=== PATIENT | male | born 1950 | race Caucasian/White ===

== ENCOUNTER 2021-03-28 18:06 | Inpatient (IN) | payer MEDICARE, MEDICAID, SELFPAY ==
[2021-03-28] VITALS (8 sets, daily range): BP systolic 106–138; BP diastolic 53–102; PULSE 30–97; RESP 17–27; TEMP 36.9–39.4; O2SAT 92–97; BMI 28.4
--- NOTE | 2021-03-28 18:55 | EKG12_ITS ---
Test Reason : UNRESPONSIVE Blood Pressure : / mmHG Vent. Rate : 089 BPM Atrial Rate : 089 BPM P-R Int : 186 ms QRS Dur : 156 ms QT Int : 406 ms P-R-T Axes : 050 -52 106 degrees QTc Int : 493 ms AV dual-paced rhythm Abnormal ECG Confirmed by MELISSA BRADLEY, JENNIFER ([id number]), development editor JEFF TONG ([id number]) on 03/31/2021 12:51:20 PM Referred By: BARON/FRANK Confirmed By:CLARITA TORRES MD
--- NOTE | 2021-03-28 19:01 | EX.ED.DYSGE1 ---
HPI History of Present Illness Chief Complaint: Mental Status Change Detail of Chief Complaint: Fever Informant: patient and EMS Onset/Context/Timing Onset: Today Context: Gradual Onset Timing: Continuous Current Severity: Moderate Maximum Severity: Moderate Narrative Narrative: 70-year-old male who [place] Per the squad patient looked ill and had a pulse ox of 69%. He has a fever of over 102. And was sent to the emergency department. Patient himself is unable give me any history. He is awake. He is answering questions. Is a very poor informant. There is no other family currently present. Prior similar symptoms: No Recent Illness/Hospitalization: No PFSH PFSH Medical History Anemia Cardiac pacemaker Chronic kidney disease Delusional disorder Dementia Drug induced acute dystonia Encephalopathy Essential (primary) hypertension Hallucinations Heart block Hyperlipemia Hypertensive chronic kidney disease with stage 1 through stage 4 chronic kidney disease, or unspecified chronic kidney disease Hypothyroidism IBS (irritable bowel syndrome) Muscle weakness Need for assistance with personal care Obstructive hypertrophic cardiomyopathy Other disorders of electrolyte and fluid balance, not elsewhere classified Parkinson disease Patient noncompliance, general Peripheral vascular disease Psychotic disorder with delusions due to known physiological condition Schizoaffective disorder TBI (traumatic brain injury) Unspecified psychosis not due to a substance or known physiological condition Vascular dementia Home Medications acetaminophen [Tylenol] 650 mg PO Q4H PRN 03/28/21 [History Last Taken 03/23/21] ascorbic acid (vitamin C) 1 g PO DAILY 03/28/21 [History Last Taken 03/28/21] aspirin 81 mg PO DAILY 03/28/21 [History Last Taken 03/28/21] cetirizine [Zyrtec] 10 mg PO DAILY 03/28/21 [History Last Taken 03/28/21] cholecalciferol (vitamin D3) 125 mcg PO DAILY 03/28/21 [History Last Taken 03/28/21] cholestyramine-aspartame [Cholestyramine Light] 1 ea PO MOWEFR 03/28/21 [History Last Taken 03/28/21] cimetidine 400 mg PO BID 03/28/21 [History Last Taken 03/28/21] divalproex 250 mg PO TID 03/28/21 [History Last Taken 03/28/21] divalproex 500 mg PO TID 03/28/21 [History Last Taken 03/28/21] levothyroxine 75 mcg PO DAILY 03/28/21 [History Last Taken 03/28/21] loperamide [Imodium A-D] 2 mg PO Q6H PRN 03/28/21 [History Last Taken 03/24/21] medroxyprogesterone 5 mg PO DAILY 03/28/21 [History Last Taken 03/28/21] medroxyprogesterone 10 mg PO DAILY 03/28/21 [History Last Taken 03/28/21] metoprolol succinate 50 mg PO DAILY 03/28/21 [History Last Taken 03/28/21] olanzapine 10 mg PO QHS 03/28/21 [History Last Taken 03/27/21] zinc sulfate 220 mg PO DAILY 03/28/21 [History Last Taken 03/28/21] Allergy/AdvReac Type Severity Reaction Status Date / Time benztropine Allergy PT UNABLE Verified 03/28/21 19:22 TO RESPOND-NEEDS F/U Penicillins Allergy PT UNABLE Verified 03/28/21 19:22 TO RESPOND-NEEDS F/U Social History Smoking Status: Never smoker ROS ROS ED ROS Narrative Unable to obtain per patient. Patient denies but history is not accurate. Review of Systems ROS Unobtainable: Denies due to encephalopathy Constitutional Constitutional ED: Reports fever(s) Eyes Eyes: Denies change in vision ENT ENT ED: Denies ear pain or sore throat Cardiovascular Cardiovascular: Denies chest pain Respiratory/Chest Respiratory/Chest: Denies cough or dyspnea Gastrointestinal Gastrointestinal: Denies abdominal pain, diarrhea, nausea or vomiting Genitourinary Genitourinary ED: Denies dysuria Musculoskeletal Musculoskeletal: Denies myalgias Integumentary Denies rash Neurologic Neurologic: Denies headache(s) Psychiatric Psychiatric: Denies depression Endocrine Endocrinology: Denies polyuria Allergic/Immunologic Allergic/Immunologic ED: Denies urticaria EXAM Physical Exam Narrative Exam Narrative: Older male vital signs stable he does have a fever of 102.9. He may be septic. He looks dehydrated. HEENT exam dry mucous memories. No trauma. Nontender scalp. No hematoma. C-spine nontender. Trachea midline. Lungs diminished breath sounds bilaterally. No rales or rhonchi. Heart regular rhythm rate about 90 no murmur. Chest nontender. Abdomen soft nontender. Pelvic girdle intact. Moving all 4 extremities. No deformity. No cellulitis. Back nontender. No rashes. No bruising. Neurologically is awake. His eyes are open. He is moving all 4 extremities. He is answering questions but his history is inaccurate. Const Vital Signs: 03/28/21 18:08 03/28/21 18:13 03/28/21 18:55 Temperature 102.9 F H 102.3 F H 99.5 F H Temperature Source Oral Oral Oral Pulse Rate 89 88 88 Respiratory Rate 27 H 19 H 19 H Blood Pressure 123/69 H 123/69 H 138/102 H Blood Pressure Mean 87 87 114 Pulse Ox 94 95 96 Oxygen Delivery Method Room Air Room Air Room Air 03/28/21 19:44 03/28/21 21:00 03/28/21 22:22 Temperature 99.4 F H 98.4 F 98.5 F Temperature Source Oral Oral Axillary Pulse Rate 79 70 97 Respiratory Rate 18 24 H 17 Blood Pressure 125/53 H 106/68 107/63 Blood Pressure Mean 77 80 77 Pulse Ox 96 92 60 Oxygen Delivery Method Room Air Room Air Room Air 03/28/21 22:23 Temperature 98.5 F Temperature Source Axillary Pulse Rate Respiratory Rate Blood Pressure Blood Pressure Mean Pulse Ox Oxygen Delivery Method Positive well nourished and well developed; Negative for obese, cachectic, contractures or unkempt General Appearance ED: well developed and NAD; Negative for unkempt, cachectic, contractures, cyanotic or diaphoretic Nutritional Appearance: Negative for cachectic or obese HEENT Reports dry mucous membranes Negative for trauma or tenderness Mouth ED: Yes dry mucous membranes Mouth: dry mucous membranes Eyes PERRL and EOMs intact bilaterally Neck no lymphadenopathy, supple and no JVD General: Negative for tenderness Chest Wall inspection of chest normal and palpation of chest normal Resp normal respiratory effort and clear to auscultation bilaterally Auscultation: diminished lung sounds; Negative for rales, rhonchi or wheezes Cardio regular rate, regular rhythm, S1 normal heart sound, S2 normal heart sound and no murmurs GI normal to inspection, nondistended, normoactive bowel sounds, non-tender, non-distended and no masses Inspection: Negative for abdominal distention Auscultation: normoactive bowel sounds; Negative for hyperactive bowel sounds or hypoactive bowel sounds Palpation: soft; Negative for tender, guarding or rebound tenderness present Back/Spine no CVA tenderness General Back: Negative for CVA tenderness Cervical Spine: Negative for cervical spine tenderness Thoracic Spine / Upper Back: Negative for thoracic spinal tenderness or paraspinal muscle tenderness Lumbar Spine / Lower Back: Negative for lumbar spinal tenderness Extremity normal to inspection General Extremety ED: Negative for edema or tenderness General Extremity: Negative for edema Neuro No oriented x3 Sensorium / Orientation: alert, orientation impaired and lethargic; Negative for stuporous Motor Exam: strength 5/5 throughout and general weakness Psych mental status grossly normal Appearance: Negative for unkempt Skin no rashes or lesions noted and no wounds MDM MDM MDM Narrative Medical decision making narrative: 70-year-old male with a fever and decreased mental status and was found at the longterm. He will undergo a septic work-up initiated. Treated with IV fluids and Tylenol for fever. Repeat exam at 10:40 p.m. patient is resting comfortably. I have already spoken to the hospitalist. His physician shampoo assistant is down evaluating the patient for the ICU. Patient be admitted for Covid and sepsis. Lab Data Attestation: I reviewed the patient's lab results. Lab results narrative: CBC White count 6.7. Hemoglobin 13. PT PTT INR unremarkable. Electrolytes show potassium of 5.3 gap is 7 BUN and creatinine 27 2.47. Liver enzymes unremarkable. Lactic acid elevated 3.7. UA 150 occult blood negative nitrates. No white cells and no bacteria. Covid positive. Labs: Laboratory Results - last 24 hr 03/28/21 03/28/21 03/28/21 18:29 18:29 18:29 WBC 6.7 RBC 4.03 L Hgb 13.0 Hct 38.8 L MCV 96.3 H MCH 32.3 H MCHC 33.5 RDW Std Deviation 47.4 H RDW Coeff of Garret 13.2 Plt Count 97 L MPV 11.0 Immature Gran % (Auto) CERTIFIED PROSTHETIST VICE PRESIDENT Neut % (Auto) CERTIFIED PROSTHETIST VICE PRESIDENT Lymph % (Auto) CERTIFIED PROSTHETIST VICE PRESIDENT [place] % (Auto) CERTIFIED PROSTHETIST VICE PRESIDENT Eos % (Auto) CERTIFIED PROSTHETIST VICE PRESIDENT Baso % (Auto) CERTIFIED PROSTHETIST VICE PRESIDENT Absolute Neuts (auto) 5.2 Absolute Lymphs (auto) 0.74 L Total Counted 100 Neutrophils % (Manual) 69 Band Neutrophils % 9 H Lymphocytes % (Manual) 11 L Monocytes % (Manual) 11 H Nucleated RBC % CERTIFIED PROSTHETIST VICE PRESIDENT Diff Path Review May foll Platelet Estimate SLT DEC RBC Morphology N CHROM Anisocytosis 1+ PT 14.4 INR 1.2 APTT 34.0 Sodium 135 L Potassium 5.3 H Chloride 106 Carbon Dioxide 22.0 Anion Gap 7 BUN 27 H Creatinine 2.47 H Estim Creat Clear Calc 30.54 Est GFR (MDRD) Af Amer 33 L Est GFR (MDRD) Non-Af 28 L BUN/Creatinine Ratio 10.9 Glucose 215 H Lactic Acid Calcium 8.5 Total Bilirubin 0.60 AST 44 H ALT 39 Alkaline Phosphatase 47 Total Protein 6.5 Albumin 2.5 L Globulin 4.0 Albumin/Globulin Ratio 0.6 L Urine Color Urine Clarity Urine pH Ur Specific [place] Urine Protein Urine Glucose (UA) Urine Ketones Urine Occult Blood Urine Nitrite Urine Bilirubin Urine Urobilinogen Ur Leukocyte Esterase Urine RBC Urine WBC Ur Squamous Epith Cells Amorphous Sediment Urine Bacteria Urine Mucus 03/28/21 03/28/21 18:29 19:30 WBC RBC Hgb Hct MCV MCH MCHC RDW Std Deviation RDW Coeff of Garret Plt Count MPV Immature Gran % (Auto) Neut % (Auto) Lymph % (Auto) [place] % (Auto) Eos % (Auto) Baso % (Auto) Absolute Neuts (auto) Absolute Lymphs (auto) Total Counted Neutrophils % (Manual) Band Neutrophils % Lymphocytes % (Manual) Monocytes % (Manual) Nucleated RBC % Diff Path Review Platelet Estimate RBC Morphology Anisocytosis PT INR APTT Sodium Potassium Chloride Carbon Dioxide Anion Gap BUN Creatinine Estim Creat Clear Calc Est GFR (MDRD) Af Amer Est GFR (MDRD) Non-Af BUN/Creatinine Ratio Glucose Lactic Acid 3.7 H* Calcium Total Bilirubin AST ALT Alkaline Phosphatase Total Protein Albumin Globulin Albumin/Globulin Ratio Urine Color Yellow Urine Clarity Sl Cldy Urine pH 6.0 Ur Specific [place] 1.015 Urine Protein 30 H Urine Glucose (UA) 100 H Urine Ketones 5 H Urine Occult Blood 150 H Urine Nitrite Negative Urine Bilirubin Negative Urine Urobilinogen 4 H Ur Leukocyte Esterase Negative Urine RBC 10-25 SEEN Urine WBC 0 SEEN Ur Squamous Epith Cells 0-5 SEEN Amorphous Sediment 1+ URATE Urine Bacteria 0 SEEN Urine Mucus 0 SEEN Radiography Chest X-Ray - ED: 1 View, Read by ED Physician and Left Infiltrate Diagnostic Testing: Radiology Impression Chest X-Ray 03/28/21 19:40 IMPRESSION: Small patchy interstitial opacities are seen in the costophrenic angle of the left lower lobe Electronically Signed: Pavan Parham MD at 21:06 EDT , Service support , Chest x-ray portable one view with left lower lobe infiltrate. Rhythm Strip Rhythm Strip: Paced Rate: 89 EKG Initial EKG: Attestation: I personally reviewed and interpreted this EKG as follows: Interpretation: No Acute Injury Pattern and Paced Comments: Paced rhythm rate of 89. Interventricular conduction delay. Critical Care Time Critical Care Time: Yes Critical care time (excluding procedures): 30-74 minutes, Including time spent:, Discussing w/Patient &/or Family/Sleeve Fixer, Discussing w/Consultants, Arranging Admission or Transfer, Performing Direct Patient Care at Bedside and - (31 minutes) Discharge Plan Dx/Rx/DC Orders Clinical Impression: Fever, COVID-19, Altered mental status, Sepsis Disposition Disposition: Acute Care Hospital [facility]
[2021-03-28] MEDS: 0.9% Normal Saline 1,000 ML 999 ML IV (19:21)
--- NOTE | 2021-03-28 19:40 | RAD_ITS ---
STUDY: X-RAY CHEST REASON FOR EXAM: Male, 70 years old. fever TECHNIQUE: Single AP portable view of the chest. COMPARISON: None. FINDINGS: Right chest cardiac device and leads noted. Small patchy interstitial opacities are seen in the costophrenic angle of the left lower lobe. The interstitium is coarsened within the right upper lobe appears to be chronic. There is no demonstrated pleural abnormality. Sternal cerclage wires and vascular clips are present from a prior sternotomy and coronary artery bypass graft procedure (CABG). Normal mediastinum and tika. Normal visualized pulmonary arteries. There is atherosclerotic calcification of the aortic arch with tortuosity. There are diffuse degenerative changes of the visualized thoracic spine. Normal visualized ribs, clavicles, and shoulders. There is no demonstrated abnormality of the visualized soft tissue structures of the upper abdomen. RAD/Chest 1 View (Portable) IMPRESSION: Small patchy interstitial opacities are seen in the costophrenic angle of the left lower lobe Electronically Signed: Pavan Parham MD at 21:06 EDT , Service support ,
[2021-03-28] MEDS: Acetaminophen 500 MG Tablet 1000 MG PO (19:43)
[2021-03-28 19:50] LABS: Bacteria 0 SEEN /hpf (None Seen); Mucous, Urine 0 SEEN /hpf (<or=2+); White Blood Cells 0 SEEN /hpf (0-5)
[2021-03-28 19:54] LABS: Color, Urine Yellow (Yellow); Glucose, Dipstick 100 mg/dl (Normal); Ketone-Dipstick 5 mg/dl (Negative); Leukocyte Esterase-Dipstick Negative /ul (Negative); Nitrite-Dipstick Negative (Negative); Occult Blood-Urine 150 /ul (Negative); Protein-Dipstick 30 mg/dl (Negative); Specific Gravity, Urine 1.015 (1.002-1.030); Urine Bilirubin Dipstick Negative (Negative); Urine Urobilinogen 4 mg/dl (Normal)
[2021-03-28 19:56] LABS: Hematocrit 38.8 % (40-54); Mean Corp Hgb Conc 33.5 g/dL (32-36); Mean Corpuscular Hgb 32.3 pg (27.0-32.0); Mean Corpuscular Volume 96.3 fL (80-94); POSITIVE COUNT YES; POSITIVE MORPHOLOGY YES; Platelet Count 97 K/mm3 (150-450); RBC Distribution Width CV 13.2 % (11.6-14.6); RBC Distribution Width SD 47.4 fl (35.1-43.9); Red Blood Count 4.03 M/mm3 (4.6-6.2); White Blood Count 6.7 K/mm3 (4.4-11.0)
[2021-03-28 19:58] LABS: International Normalized Ratio 1.2; Prothrombin Time (Protime)PT. 14.4 SECONDS (11.7-14.9)
[2021-03-28 20:08] LABS: ALB/GLOB Ratio 0.6 RATIO (0.9-2.4); AST(SGOT) 44 U/L (15-37); Alanine Aminotransfer ALT/SGPT 39 U/L (16-61); Albumin, Serum 2.5 g/dL (3.2-5.0); Alkaline Phosphatase 47 U/L (45-117); Anion Gap 7 (5-15); BUN 27 mg/dL (7-18); BUN/Creat Ratio 10.9 RATIO (10-20); Calcium,Total 8.5 mg/dL (8.5-10.1); Chloride 106 mmol/L (98-107); Creatinine, Serum 2.47 mg/dL (0.70-1.30); EST Glomerular Filtration Rate 28 mL/min (>60); Est Glom Filt Rate - Afr Amer 33 mL/min (>60); Estimated Creatinine Clearance 30.54 ml/min; Glucose 215 mg/dL (74-106); Potassium 5.3 mmol/L (3.5-5.1); Protein, Total 6.5 g/dL (6.4-8.2); Sodium Level 135 mmol/L (136-145)
[2021-03-28 20:28] LABS: Lymphocyte 11 % (19-41); Monocyte 11 % (0-10); Neutrophil-Band 9 % (0-5); Neutrophil-Segmented 69 % (47-70); Total Cells Counted 100 (MANUAL DIFF)
[2021-03-28 20:30] LABS: Anisocytosis 1+; Red Cell Morphology N CHROM NORMAL (NORM C&C)
[2021-03-28 20:31] LABS: Platelet Estimate SLT DEC (ADEQ)
[2021-03-28 20:32] LABS: Differential Indicated MANUAL DIFF
--- NOTE | 2021-03-28 20:32 | ED.RN ---
lactic 3.7 reported to . verbalizes understanding
[2021-03-28 20:33] LABS: Absolute Lymphocyte Count 0.74 X10^3/uL (0.83-4.51); Absolute Neutrophil Count 5.2 X10^3/uL (2.0-7.7); Lactic Acid 3.7 mmol/L (0.4-1.9); Scan Smear per Review Criteria MANUAL DIFF
[2021-03-28 20:39] LABS: Red Blood Cells-Urine 10-25 SEEN /hpf (0-5); Squamous Epithelial Cells - UA 0-5 SEEN /hpf (0-5)
[2021-03-28 20:40] LABS: Urine Clarity Sl Cldy (Clear)
[2021-03-28 20:41] LABS: Amorphous Sediment 1+ URATE
--- NOTE | 2021-03-28 23:22 | HP.PCM_ITS ---
HPI - General General Date of Service: 03/28/21 Chief Complaint: Altered mental status HPI Narrative PASCUAL HUNTLEY, is a 70 M who presents from an [facility] where staff was concerned about patient's mental status. Per staff patient has not been acting right has been very lethargic and not behaving per his norm. Per residential report patient tested positive for Covid approximately 4 to 5 days ago. Patient is unable to answer questions at this time due to lethargy and confusion.Patient does have a legal guardian, patient full code. [facility] Medical History Anemia Cardiac pacemaker Chronic kidney disease Delusional disorder Dementia Drug induced acute dystonia Encephalopathy Essential (primary) hypertension Hallucinations Heart block Hyperlipemia Hypertensive chronic kidney disease with stage 1 through stage 4 chronic kidney disease, or unspecified chronic kidney disease Hypothyroidism IBS (irritable bowel syndrome) Muscle weakness Need for assistance with personal care Obstructive hypertrophic cardiomyopathy Other disorders of electrolyte and fluid balance, not elsewhere classified Parkinson disease Patient noncompliance, general Peripheral vascular disease Psychotic disorder with delusions due to known physiological condition Schizoaffective disorder TBI (traumatic brain injury) Unspecified psychosis not due to a substance or known physiological condition Vascular dementia Home Medications acetaminophen [Tylenol] 650 mg PO Q4H PRN 03/28/21 [History Last Taken 03/23/21] ascorbic acid (vitamin C) 1 g PO DAILY 03/28/21 [History Last Taken 03/28/21] aspirin 81 mg PO DAILY 03/28/21 [History Last Taken 03/28/21] cetirizine [Zyrtec] 10 mg PO DAILY 03/28/21 [History Last Taken 03/28/21] cholecalciferol (vitamin D3) 125 mcg PO DAILY 03/28/21 [History Last Taken 03/28/21] cholestyramine-aspartame [Cholestyramine Light] 1 ea PO MOWEFR 03/28/21 [History Last Taken 03/28/21] cimetidine 400 mg PO BID 03/28/21 [History Last Taken 03/28/21] divalproex 250 mg PO TID 03/28/21 [History Last Taken 03/28/21] divalproex 500 mg PO TID 03/28/21 [History Last Taken 03/28/21] levothyroxine 75 mcg PO DAILY 03/28/21 [History Last Taken 03/28/21] loperamide [Imodium A-D] 2 mg PO Q6H PRN 03/28/21 [History Last Taken 03/24/21] medroxyprogesterone 5 mg PO DAILY 03/28/21 [History Last Taken 03/28/21] medroxyprogesterone 10 mg PO DAILY 03/28/21 [History Last Taken 03/28/21] metoprolol succinate 50 mg PO DAILY 03/28/21 [History Last Taken 03/28/21] olanzapine 10 mg PO QHS 03/28/21 [History Last Taken 03/27/21] zinc sulfate 220 mg PO DAILY 03/28/21 [History Last Taken 03/28/21] Allergy/AdvReac Type Severity Reaction Status Date / Time benztropine Allergy PT UNABLE Verified 03/28/21 19:22 TO RESPOND-NEEDS F/U Penicillins Allergy PT UNABLE Verified 03/28/21 19:22 TO RESPOND-NEEDS F/U unable to obtain unable to obtain Social History Smoking Status: Never smoker ROS Review of Systems ROS Unobtainable: due to mental status Vital Signs Vital Signs Vital Signs: 03/28/21 18:08 03/28/21 18:13 03/28/21 18:55 Temperature 102.9 F H 102.3 F H 99.5 F H Temperature Source Oral Oral Oral Pulse Rate 89 88 88 Respiratory Rate 27 H 19 H 19 H Blood Pressure 123/69 H 123/69 H 138/102 H Blood Pressure Mean 87 87 114 Pulse Ox 94 95 96 Oxygen Delivery Method Room Air Room Air Room Air 03/28/21 19:44 03/28/21 21:00 03/28/21 22:22 Temperature 99.4 F H 98.4 F 98.5 F Temperature Source Oral Oral Axillary Pulse Rate 79 70 97 Respiratory Rate 18 24 H 17 Blood Pressure 125/53 H 106/68 107/63 Blood Pressure Mean 77 80 77 Pulse Ox 96 92 60 Oxygen Delivery Method Room Air Room Air Room Air 03/28/21 22:23 03/28/21 22:57 Temperature 98.5 F 98.5 F Temperature Source Axillary Axillary Pulse Rate 97 Respiratory Rate 17 Blood Pressure 107/63 Blood Pressure Mean 77 Pulse Ox 97 Oxygen Delivery Method Room Air Weight Weight: 209 lb 7.026 oz Body Mass Index (BMI) 28.4 Physical Exam Const Orientation / Consciousness: lethargic Exam Limitations: altered mental status HEENT normocephalic and head/scalp atraumatic Eyes conjunctivae normal and no scleral icterus Neck supple and no JVD General: trachea midline Resp normal respiratory effort and normal air movement Auscultation: wheezes upper bilaterally, anterior and posterior Cardio regular rate, regular rhythm, S1 normal heart sound, S2 normal heart sound and peripheral pulses 2+ throughout GI normal to inspection, nondistended, normoactive bowel sounds, soft to palpation and non-tender Extremity normal capillary refill and no clubbing, cyanosis or edema General Extremity: no tenderness to palpation of joints or extremities Skin General Skin Exam: no breakdown and turgor normal Lesions: no lesions Rashes: no rashes Neuro Sensorium / Orientation: confused and lethargic Psych Speech: incoherent Thought Process: confused Results Lab / Micro Data Result Diagrams: 03/28/21 18:29 03/28/21 18:29 Labs: Laboratory Results - last 24 hr 03/28/21 18:29: WBC 6.7, RBC 4.03 L, Hgb 13.0, Hct 38.8 L, MCV 96.3 H, MCH 32.3 H, MCHC 33.5, RDW Std Deviation 47.4 H, RDW Coeff of Garret 13.2, Plt Count 97 L, MPV 11.0, Immature Gran % (Auto) CIGARETTE PACKING MACHINE OPERATOR, Neut % (Auto) CIGARETTE PACKING MACHINE OPERATOR, Lymph % (Auto) CIGARETTE PACKING MACHINE OPERATOR, [place] % (Auto) CIGARETTE PACKING MACHINE OPERATOR, Eos % (Auto) CIGARETTE PACKING MACHINE OPERATOR, Baso % (Auto) CIGARETTE PACKING MACHINE OPERATOR, Absolute Neuts (auto) 5.2, Absolute Lymphs (auto) 0.74 L, Total Counted 100, Neutrophils % (Manual) 69, Band Neutrophils % 9 H, Lymphocytes % (Manual) 11 L, Monocytes % (Manual) 11 H, Nucleated RBC % CIGARETTE PACKING MACHINE OPERATOR, Diff Path Review November jez, Platelet Estimate SLT DEC, RBC Morphology N CHROM, Anisocytosis 1+ 03/28/21 18:29: PT 14.4, INR 1.2, APTT 34.0 03/28/21 18:29: Sodium 135 L, Potassium 5.3 H, Chloride 106, Carbon Dioxide 22.0, Anion Gap 7, BUN 27 H, Creatinine 2.47 H, Estim Creat Clear Calc 30.54, Est GFR (MDRD) Af Amer 33 L, Est GFR (MDRD) Non-Af 28 L, BUN/Creatinine Ratio 10.9, Glucose 215 H, Calcium 8.5, Total Bilirubin 0.60, AST 44 H, ALT 39, A lkaline Phosphatase 47, Total Protein 6.5, Albumin 2.5 L, Globulin 4.0, Albumin/Globulin Ratio 0.6 L 03/28/21 18:29: Lactic Acid 3.7 H* 03/28/21 19:30: Urine Color Yellow, Urine Clarity Sl Cldy, Urine pH 6.0, Ur Specific [place] 1.015, Urine Protein 30 H, Urine Glucose (UA) 100 H, Urine Ketones 5 H, Urine Occult Blood 150 H, Urine Nitrite Negative, Urine Bilirubin Negative, Urine Urobilinogen 4 H, Ur Leukocyte Esterase Negative, Urine RBC 10- 25 SEEN, Urine WBC 0 SEEN, Ur Squamous Epith Cells 0-5 SEEN, Amorphous Sediment 1+ URATE, Urine Bacteria 0 SEEN, Urine Mucus 0 SEEN Micro: Microbiology 03/28/21 19:30 Nasal Secretion SARS-CoV-2 Antigen (Rapid) - Final SARS-CoV-2 (COVID 19) Rhythm Strip Rhythm Strip: Paced Rate: 89 Radiology Impression Chest X-Ray 03/28/21 19:40 IMPRESSION: Small patchy interstitial opacities are seen in the costophrenic angle of the left lower lobe Electronically Signed: Pavan Parham MD at 21:06 EDT , Service support , Assessment & Plan Assessment/Plan (1) COVID-19: (2) Sepsis: QUALIFIERS: Sepsis type: sepsis due to unspecified organism Sepsis acute organ dysfunction status: with acute organ dysfunction Severe sepsis acute organ dysfunction type: acute renal failure Acute renal failure type: unspecified Severe sepsis shock status: without septic shock Qualified Code(s): A41.9 - Sepsis, unspecified organism; R65.20 - Severe sepsis without septic shock; N17.9 - Acute kidney failure, unspecified PLAN: 1. Sepsis secondary to COVID-19 -Admit to ICU for continuous cardiac monitoring -N.p.o. due to lethargy and decreased alertness -Blood sugars every 6 hours to monitor for hypoglycemia -Consult biopsychologist -Consult infectious disease -Consult case management for discharge planning as patient arrived from [facility] facility -Covid precautions ordered -CPK, CRP, D-dimer, LDH, procalcitonin, mag, Phos ordered -CBC and CMP daily -Vital signs per protocol -PT and OT to eval and treat -Therapeutic Lovenox 2. Acute kidney injury -Normal saline 150 ml/hr -Labs reviewed on clinisync, BMP from 2019 shows creatinine 1.4, 2.47 -CMP daily, trend 3. Hypertension -Continue metoprolol -Vital signs per protocol, currently stable. Monitor for hypotension secondary to sepsis 4. Schizoaffective disorder -Continue olanzapine -Patient also has sexual aggression, will continue medroxyprogesterone 5. Hypothyroidism -Continue levothyroxine 6. Chronic unspecified encephalopathy -Complicates evaluation of altered mental status DVT prophylaxis-SCDs, therapeutic Lovenox ordered This patient was seen by JYOTI Drake under the supervision of Dr. Bhatt.
[2021-03-28 23:51] LABS: Reflex Lactate? Y
[2021-03-29] VITALS (24 sets, daily range): BP systolic 111–157; BP diastolic 57–92; PULSE 60–86; RESP 12–26; TEMP 36.4–36.8; O2SAT 90–100; BMI 29.7
[2021-03-29] MEDS: dexAMETHasone 10 MG/ML Vial IV (00:10)
--- NOTE | 2021-03-29 01:00 | NURSING ---
Upon arrival to ICU patient requests a peanut butter sandwich and asks what time breakfast is served. States he has had diarrhea so he will need cleaned up. Patient is alert but disoriented. Will continue to monitor.
[2021-03-29] MEDS: 0.9% Normal Saline 1,000 ML 50 ML IV (01:34)
[2021-03-29 01:41] LABS: Hematocrit 36.1 % (40-54); Mean Corp Hgb Conc 33.2 g/dL (32-36); Mean Corpuscular Hgb 32.3 pg (27.0-32.0); Mean Platelet Vol. 10.6 fl (6.2-12.0); POSITIVE COUNT YES; POSITIVE MORPHOLOGY YES; Platelet Count 83 K/mm3 (150-450); RBC Distribution Width CV 13.2 % (11.6-14.6); RBC Distribution Width SD 47.8 fl (35.1-43.9); Red Blood Count 3.72 M/mm3 (4.6-6.2); White Blood Count 5.9 K/mm3 (4.4-11.0)
[2021-03-29 01:45] LABS: Differential Indicated MANUAL DIFF
[2021-03-29 01:58] LABS: Lactic Acid 1.7 mmol/L (0.4-1.9)
[2021-03-29 02:18] LABS: Procalcitonin 4.52 ng/mL (0.00-0.09)
[2021-03-29 02:27] LABS: ALB/GLOB Ratio 0.8 RATIO (0.9-2.4); AST(SGOT) 71 U/L (15-37); Alanine Aminotransfer ALT/SGPT 40 U/L (16-61); Albumin, Serum 2.4 g/dL (3.2-5.0); Alkaline Phosphatase 42 U/L (45-117); Anion Gap 7 (5-15); BUN 29 mg/dL (7-18); BUN/Creat Ratio 13.6 RATIO (10-20); Chloride 110 mmol/L (98-107); Creatinine, Serum 2.13 mg/dL (0.70-1.30); EST Glomerular Filtration Rate 33 mL/min (>60); Est Glom Filt Rate - Afr Amer 40 mL/min (>60); Estimated Creatinine Clearance 33.32 ml/min; Globulin 3.1 g/dL (2.2-4.2); Glucose 151 mg/dL (74-106); Magnesium 2.2 mg/dL (1.6-2.6); Phosphorus 3.7 mg/dL (2.5-4.9); Potassium 4.8 mmol/L (3.5-5.1); Protein, Total 5.5 g/dL (6.4-8.2); Sodium Level 139 mmol/L (136-145)
[2021-03-29 02:32] LABS: D-Dimer Quantitative (DVT/PE) 3.95 FEU/ug/m (0.27-0.49)
[2021-03-29 02:42] LABS: CPK Total, Creatine Kinase 1815 U/L (39-308); LDH 401 U/L (87-241)
[2021-03-29 03:11] LABS: Metamyelocyte 1 % (0-1); Neutrophil-Band 4 % (0-5); Neutrophil-Segmented 74 % (47-70); Total Cells Counted 100 (MANUAL DIFF)
[2021-03-29 03:12] LABS: Lymphocyte 14 % (19-41); Monocyte 7 % (0-10)
[2021-03-29 03:13] LABS: Platelet Estimate SLT DEC (ADEQ); Red Cell Morphology NORM C+C NORMAL (NORM C&C)
[2021-03-29 03:14] LABS: Absolute Neutrophil Count 4.6 X10^3/uL (2.0-7.7); Neutrophil # 4.61 X10^3/uL (2.7-7.7)
[2021-03-29 03:15] LABS: Absolute Lymphocyte Count 0.83 X10^3/uL (0.83-4.51); Lymphocyte # 0.83 X10^3/ul (0.83-4.51)
--- NOTE | 2021-03-29 05:54 | CT_ITS ---
STUDY: CTA CHEST REASON FOR EXAM: Male, 70 years old. ELEVATED D-DIMER RADIATION DOSAGE (If Supplied By Facility): CTDIvol = ( 14.78 ) mGy, DLP = ( 504.98 ) mGycm TECHNIQUE: The examination was performed with the intravenous administration of IV 100mL Isovue-370. Post-processing of the angiographic images was performed, with multiplanar reformation and 3D reconstruction. Individualized dose optimization techniques were used for this CT. COMPARISON: None. FINDINGS: Evaluation is limited by patient motion and by streak artifact due to the patient''s arms being at his sides. There are peripheral groundglass opacities in both lungs, most pronounced in the right upper lobe. There are no pleural effusions. There is no pneumothorax. There is no central or segmental pulmonary embolus. Subsegmental branches are not well evaluated. There is no thoracic aortic aneurysm. The contrast bolus is insufficient to exclude thoracic aortic dissection. The patient status post sternotomy. The heart is normal in size. There is a pacemaker in place. There is no thoracic lymphadenopathy. Images through the upper abdomen demonstrate no significant abnormality. There are no destructive osseous lesions. CT/CTA Chest W/WO Contrast IMPRESSION: Limited study. No central or segmental pulmonary embolus. Peripheral groundglass opacities in both lungs, most pronounced in the right upper lobe. This is consistent with multilobar pneumonia and COVID should be excluded. Electronically Signed: Nabil Yepez MD at 8:22 EDT Tel , Service support ,
[2021-03-29] MEDS: Divalproex Sodium 250 MG Tablet 500 MG PO ×3 (06:24→21:08)
--- NOTE | 2021-03-29 09:54 | CON.PCM.CC_ITS ---
Assessment & Plan Assessment/Plan (1) COVID-19: (2) Sepsis: QUALIFIERS: Sepsis type: sepsis due to unspecified organism Sepsis acute organ dysfunction status: with acute organ dysfunction Severe sepsis acute organ dysfunction type: acute renal failure Acute renal failure type: unspecified Severe sepsis shock status: without septic shock Qualified Code(s): A41.9 - Sepsis, unspecified organism; R65.20 - Severe sepsis without septic shock; N17.9 - Acute kidney failure, unspecified (3) Fever: (4) Altered mental status: PLAN: RECOMMENDATIONS: 1. Initiate empiric antibiotics pending culture data 2. Continue Decadron. Discontinue Remdesivir given room air 3. Increase activity as tolerated 4. Symptomatic control of fever 5. Okay to leave the intensive care unit from my perspective IMPRESSIONS: 1. Sepsis of unclear etiology Patient does have a diagnosis of COVID-19, but is on room air. Elevated CRP and pro calcitonin is concerning for possible secondary bacterial source. Pancultures have been obtained. Will initiate patient on empiric antibiotics for 48 hours until cultures can be resulted. Patient does not have significant hypoxia, so would recommend holding Remdesivir for now. Infectious disease has been consulted. 2. Metabolic encephalopathy Unclear if metabolic encephalopathy is secondary to acute delirium given high fevers and acute infection. This does appear to be improving with supp ortive hemodynamics and suppression of fever. We will continue to monitor. 3. Acute kidney injury Patient's baseline creatinine appears to be approximately 1.4 from 2019. Patient has been placed on IV fluids, but given COVID-19 diagnosis, would recommend using boluses instead. We will KVO IV fluids. Okay to receive boluses intermittently. No indication for renal replacement therapy 4. Schizoaffective disorder/hypothyroidism/hypertension Complicates care, management, recovery and prognosis. Patient will be at high risk for the development of delirium. Use of atypical antipsychotics should provoke QT evaluation. HPI Consult Data Date of Consult: 03/29/21 HPI Narrative HPI Narrative: PASCUAL HUNTLEY is a 70 M, with past medical history listed below, who presents to [facility] on 03/28/2021 secondary to fever and change in mental status. Patient reportedly had had gradually increasing temperature and confusion on the day of presentation. Patient was noted to have a temperature of over 102 ?F and reportedly looked ill with a pulse ox of 69%. Patient was able to answer questions, but a very poor informant. In the ER, patient was noted to have a temperature of 102.9 ?F, but was saturating well on room air. Patient was tachypneic at 27, but normotensive. Respiratory rate improved significantly with decrease in fever. Laboratory work-up showed a white blood cell count of 6.7, hemoglobin of 13, unremarkable coags, but elevated potassium at 5.3 and [place] at 2.47. LFTs were unremarkable. Patient did have an elevated lactate of 3.7 and a urinalysis showing urate sediment with urobili and occult blood. Chest x-ray showed mild interstitial opacities and EKG showed a paced rhythm. The patient was treated with IV fluids and Tylenol and admitted to the intensive care unit with a diagnosis of sepsis. Since being in the intensive care unit, patient has received Tylenol, dexamethasone and Remdesivir load. Patient has been stable on room air and normotensive. Patient has not received any antibiotics. Patient did have additional lab work showing a CRP of 128 and a pro calcitonin of 4.5. Patient is aware that he is at [facility] and the year, but is not able to provide much additional information. Unable to obtain a review of systems. [facility] Medical History Anemia Cardiac pacemaker Chronic kidney disease Delusional disorder Dementia Drug induced acute dystonia Encephalopathy Essential (primary) hypertension Hallucinations Heart block Hyperlipemia Hypertensive chronic kidney disease with stage 1 through stage 4 chronic kidney disease, or unspecified chronic kidney disease Hypothyroidism IBS (irritable bowel syndrome) Muscle weakness Need for assistance with personal care Obstructive hypertrophic cardiomyopathy Other disorders of electrolyte and fluid balance, not elsewhere classified Parkinson disease Patient noncompliance, general Peripheral vascular disease Psychotic disorder with delusions due to known physiological condition Schizoaffective disorder TBI (traumatic brain injury) Unspecified psychosis not due to a substance or known physiological condition Vascular dementia Home Medications acetaminophen [Tylenol] 650 mg PO Q4H PRN 03/28/21 [History Last Taken 03/23/21] ascorbic acid (vitamin C) 1 g PO DAILY 03/28/21 [History Last Taken 03/28/21] aspirin 81 mg PO DAILY 03/28/21 [History Last Taken 03/28/21] cetirizine [Zyrtec] 10 mg PO DAILY 03/28/21 [History Last Taken 03/28/21] cholecalciferol (vitamin D3) 125 mcg PO DAILY 03/28/21 [History Last Taken 03/28/21] cholestyramine-aspartame [Cholestyramine Light] 1 ea PO MOWEFR 03/28/21 [History Last Taken 03/28/21] cimetidine 400 mg PO BID 03/28/21 [History Last Taken 03/28/21] divalproex 250 mg PO TID 03/28/21 [History Last Taken 03/28/21] divalproex 500 mg PO TID 03/28/21 [History Last Taken 03/28/21] levothyroxine 75 mcg PO DAILY 03/28/21 [History Last Taken 03/28/21] loperamide [Imodium A-D] 2 mg PO Q6H PRN 03/28/21 [History Last Taken 03/24/21] medroxyprogesterone 5 mg PO DAILY 03/28/21 [History Last Taken 03/28/21] medroxyprogesterone 10 mg PO DAILY 03/28/21 [History Last Taken 03/28/21] metoprolol succinate 50 mg PO DAILY 03/28/21 [History Last Taken 03/28/21] olanzapine 10 mg PO QHS 03/28/21 [History Last Taken 03/27/21] zinc sulfate 220 mg PO DAILY 03/28/21 [History Last Taken 03/28/21] Allergy/AdvReac Type Severity Reaction Status Date / Time benztropine Allergy PT UNABLE Verified 03/28/21 19:22 TO RESPOND-NEEDS F/U Penicillins Allergy PT UNABLE Verified 03/28/21 19:22 TO RESPOND-NEEDS F/U Social History Smoking Status: Never smoker ROS Review of Systems ROS Unobtainable: due to mental condition Physical Exam Const alert Orientation / Consciousness: oriented to person and oriented to place Nutritional Appearance: obese HEENT normocephalic and head/scalp atraumatic Eyes conjunctivae normal and no scleral icterus Neck supple and no JVD General: trachea midline Resp normal respiratory effort and normal air movement Auscultation: wheezes throughout Cardio regular rate, regular rhythm, S1 normal heart sound, S2 normal heart sound and peripheral pulses 2+ throughout GI normal to inspection, nondistended, normoactive bowel sounds, soft to palpation and non-tender Extremity normal capillary refill and no clubbing, cyanosis or edema General Extremity: no tenderness to palpation of joints or extremities Skin General Skin Exam: no breakdown and turgor normal Lesions: no lesions Rashes: no rashes Neuro CN's II-XII intact bilaterally, moves all extremities and no sensory deficits noted Sensorium / Orientation: confused Psych Speech: normal speech Thought Process: confused Lab / Micro Data Result Diagrams: 03/29/21 01:25 03/29/21 01:25 Labs: Laboratory Results - last 24 hr 03/28/21 18:29: WBC 6.7, RBC 4.03 L, Hgb 13.0, Hct 38.8 L, MCV 96.3 H, MCH 32.3 H, MCHC 33.5, RDW Std Deviation 47.4 H, RDW Coeff of Garret 13.2, Plt Count 97 L, MPV 11.0, Immature Gran % (Auto) [employer] V[employer]TER, Neut % (Auto) [employer] CON[employer]TER, Lymph % (Auto) [employer] CON[employer]TER, [place] % (Auto) [employer] CON[employer]TER, Eos % (Auto) [employer] CON[employer]TER, Baso % (Auto) [employer] CON[employer]TER, Absolute Neuts (auto) 5.2, Absolut e Lymphs (auto) 0.74 L, Total Counted 100, Neutrophils % (Manual) 69, Band Ne utrophils % 9 H, Lymphocytes % (Manual) 11 L, Monocytes % (Manual) 11 H, Nucleated RBC % [employer]TER, Diff Path Review November, Platelet Estimate SLT DEC, RBC Morphology N CHROM, Anisocytosis 1+ 03/28/21 18:29: PT 14.4, INR 1.2, APTT 34.0 03/28/21 18:29: Sodium 135 L, Potassium 5.3 H, Chloride 106, Carbon Dioxide 22.0, Anion Gap 7, BUN 27 H, Creatinine 2.47 H, Estim Creat Clear Calc 30.54, Est GFR (MDRD) Af Amer 33 L, Est GFR (MDRD) Non-Af 28 L, BUN/Creatinine Ratio 10.9, Glucose 215 H, Calcium 8.5, Total Bilirubin 0.60, AST 44 H, ALT 39, Alkaline Phosphatase 47, Total Protein 6.5, Albumin 2.5 L, Globulin 4.0, Albumin/Globulin Ratio 0.6 L 03/28/21 18:29: Lactic Acid 3.7 H* 03/28/21 19:30: Urine Color Yellow, Urine Clarity Sl Cldy, Urine pH 6.0, Ur Specific [place] 1.015, Urine Protein 30 H, Urine Glucose (UA) 100 H, Urine Ketones 5 H, Urine Occult Blood 150 H, Urine Nitrite Negative, Urine Bilirubin N egative, Urine Urobilinogen 4 H, Ur Leukocyte Esterase Negative, Urine RBC 10-25 SEEN, Urine WBC 0 SEEN, Ur Squamous Epith Cells 0-5 SEEN, Amorphous Sediment 1+ URATE, Urine Bacteria 0 SEEN, Urine Mucus 0 SEEN 03/29/21 01:25: Lactic Acid 1.7 03/29/21 01:25: D-Dimer Quant (PE/DVT) 3.95 H* 03/29/21 01:25: Lactate Dehydrogenase 401 H, Total Creatine Kinase 1815 H, C- React Prot Ext Range 128.00 H 03/29/21 01:25: Procalcitonin 4.52 H 03/29/21 01:25: WBC 5.9, RBC 3.72 L, Hgb 12.0 L, Hct 36.1 L, MCV 97.0 H, MCH 32.3 H, MCHC 33.2, RDW Std Deviation 47.8 H, RDW Coeff of Garret 13.2, Plt Count 83 L, MPV 10.6, Neut % (Auto) Not Reportable, Absolute Neuts (auto) 4.6, Absolute Lymphs (auto) 0.83, Total Counted 100, Neutrophils % (Manual) 74 H, Band Neutrophils % 4, Lymphocytes % (Manual) 14 L, Monocytes % (Manual) 7, Metamyelocytes % 1, Diff Path Review November foll, Platelet Estimate SLT DEC, RBC Morphology NORM C+C 03/29/21 01:25: Sodium 139, Potassium 4.8, Chloride 110 H, Carbon Dioxide 22.0, Anion Gap 7, BUN 29 H, Creatinine 2.13 H, Estim Creat Clear Calc 33.32, Est GFR (MDRD) Af Amer 40 L, Est GFR (MDRD) Non-Af 33 L, BUN/Creatinine Ratio 13.6, Glucose 151 H, Calcium 8.0 L, Phosphorus 3.7, Magnesium 2.2, Total Bilirubin 0.60, AST 71 H, ALT 40, Alkaline Phosphatase 42 L, Total Protein 5.5 L, Albumin 2.4 L, Globulin 3.1, Albumin/Globulin Ratio 0.8 L Micro: Microbiology 03/28/21 19:30 Nasal Secretion SARS-CoV-2 Antigen (Rapid) - Final SARS-CoV-2 (COVID 19) Rhythm Strip Rhythm Strip: Paced Rate: 89 Radiology Impression Chest X-Ray 03/28/21 19:40 IMPRESSION: Small patchy interstitial opacities are seen in the costophrenic angle of the left lower lobe Electronically Signed: Pavan Parham MD at 21:06 EDT , Service support , Chest CTA 03/29/21 05:54 IMPRESSION: Limited study. No central or segmental pulmonary embolus. Peripheral groundglass opacities in both lungs, most pronounced in the right upper lobe. This is consistent with multilobar pneumonia and COVID should be excluded. Electronically Signed: Nabil Yepez MD at 8:22 EDT Tel , Service support , Charges/Coding Visit Charges Inpatient E&M: 79473 Init Hosp L3
--- NOTE | 2021-03-29 10:06 | CON.PCM.ID_ITS ---
Assessment & Plan Assessment/Plan (1) COVID-19: PLAN: Reports sx started about 3-4 days prior to admit. Sats 95-99% on RA this AM while sleeping. Remdesivir x1 given, then stopped. On dex. High d- dimer and procalcitonin, fever resolved. CT neg for PE. Wbc normal. YENNI on CKD improved. Ok to continue dex and monitor symptoms. Plan on 20 days of quarantine from start of symptoms. Reports he got 2nd dose covid vaccine 2-3 weeks ago, so would be considered fully vaccinated. Will follow, thank you (2) Fever: (3) Altered mental status: HPI Consult Data Date of Consult: 03/29/21 HPI Narrative HPI Narrative: PASCUAL HUNTLEY, is a 70 M F resident with h/o CKD, dementia, schizoaffective disorder, presented to ED after being found down with pulse ox 69%. Reports 3 days of feeling sick, chills, diarrhea. Completed 2nd dose covid vaccine 2-3 weeks ago. Given remdesivir x1, started on dex. Feeling ok this AM. CTA chest done. Full ROS performed and neg except as noted above PFSH Medical History Anemia Cardiac pacemaker Chronic kidney disease Delusional disorder Dementia Drug induced acute dystonia Encephalopathy Essential (primary) hypertension Hallucinations Heart block Hyperlipemia Hypertensive chronic kidney disease with stage 1 through stage 4 chronic kidney disease, or unspecified chronic kidney disease Hypothyroidism IBS (irritable bowel syndrome) Muscle weakness Need for assistance with personal care Obstructive hypertrophic cardiomyopathy Other disorders of electrolyte and fluid balance, not elsewhere classified Parkinson disease Patient noncompliance, general Peripheral vascular disease Psychotic disorder with delusions due to known physiological condition Schizoaffective disorder TBI (traumatic brain injury) Unspecified psychosis not due to a substance or known physiological condition Vascular dementia Home Medications acetaminophen [Tylenol] 650 mg PO Q4H PRN 03/28/21 [History Last Taken 03/23/21] ascorbic acid (vitamin C) 1 g PO DAILY 03/28/21 [History Last Taken 03/28/21] aspirin 81 mg PO DAILY 03/28/21 [History Last Taken 03/28/21] cetirizine [Zyrtec] 10 mg PO DAILY 03/28/21 [History Last Taken 03/28/21] cholecalciferol (vitamin D3) 125 mcg PO DAILY 03/28/21 [History Last Taken 03/28/21] cholestyramine-aspartame [Cholestyramine Light] 1 ea PO MOWEFR 03/28/21 [History Last Taken 03/28/21] cimetidine 400 mg PO BID 03/28/21 [History Last Taken 03/28/21] divalproex 250 mg PO TID 03/28/21 [History Last Taken 03/28/21] divalproex 500 mg PO TID 03/28/21 [History Last Taken 03/28/21] levothyroxine 75 mcg PO DAILY 03/28/21 [History Last Taken 03/28/21] loperamide [Imodium A-D] 2 mg PO Q6H PRN 03/28/21 [History Last Taken 03/24/21] medroxyprogesterone 5 mg PO DAILY 03/28/21 [History Last Taken 03/28/21] medroxyprogesterone 10 mg PO DAILY 03/28/21 [History Last Taken 03/28/21] metoprolol succinate 50 mg PO DAILY 03/28/21 [History Last Taken 03/28/21] olanzapine 10 mg PO QHS 03/28/21 [History Last Taken 03/27/21] zinc sulfate 220 mg PO DAILY 03/28/21 [History Last Taken 03/28/21] Allergy/AdvReac Type Severity Reaction Status Date / Time benztropine Allergy PT UNABLE Verified 03/28/21 19:22 TO RESPOND-NEEDS F/U Penicillins Allergy PT UNABLE Verified 03/28/21 19:22 TO RESPOND-NEEDS F/U Social History Smoking Status: Never smoker Physical Exam Const alert and no apparent distress General Appearance: cooperative HEENT normocephalic and head/scalp atraumatic Eyes PERRL and EOMs intact bilaterally Neck supple and No nodes Lymph Lymphatic: no lymphadenopathy noted Resp clear to auscultation bilaterally Auscultation: diminished lung sounds Cardio regular rate and regular rhythm GI normal to inspection, nondistended, normoactive bowel sounds Extremity no clubbing, cyanosis or edema Skin no rashes or lesions noted Neuro CN's II-XII intact bilaterally Lab / Micro Data Result Diagrams: 03/29/21 01:25 03/29/21 01:25 Labs: Laboratory Results - last 24 hr 03/28/21 18:29: WBC 6.7, RBC 4.03 L, Hgb 13.0, Hct 38.8 L, MCV 96.3 H, MCH 32.3 H, MCHC 33.5, RDW Std Deviation 47.4 H, RDW Coeff of Garret 13.2, Plt Count 97 L, MPV 11.0, Immature Gran % (Auto) TELEPHONE WORKER, Neut % (Auto) TELEPHONE WORKER, Lymph % (Auto) TELEPHONE WORKER, [place] % (Auto) TELEPHONE WORKER, Eos % (Auto) TELEPHONE WORKER, Baso % (Auto) TELEPHONE WORKER, Absolute Neuts (auto) 5.2, Absolute Lymphs (auto) 0.74 L, Total Counted 100, Neutrophils % (Manual) 69, Band Neutrophils % 9 H, Lymphocytes % (Manual) 11 L, Monocytes % (Manual) 11 H, Nucleated RBC % TELEPHONE WORKER, Diff Path Review November, Platelet Estimate SLT DEC, RBC Morphology N CHROM, Anisocytosis 1+ 03/28/21 18:29: PT 14.4, INR 1.2, APTT 34.0 03/28/21 18:29: Sodium 135 L, Potassium 5.3 H, Chloride 106, Carbon Dioxide 2 2.0, Anion Gap 7, BUN 27 H, Creatinine 2.47 H, Estim Creat Clear Calc 30.54, Est GFR (MDRD) Af Amer 33 L, Est GFR (MDRD) Non-Af 28 L, BUN/Creatinine Ratio 10.9, Glucose 215 H, Calcium 8.5, Total Bilirubin 0.60, AST 44 H, ALT 39, Alkaline Phosphatase 47, Total Protein 6.5, Albumin 2.5 L, Globulin 4.0, Albumin/Globulin Ratio 0.6 L 03/28/21 18:29: Lactic Acid 3.7 H* 03/28/21 19:30: Urine Color Yellow, Urine Clarity Sl Cldy, Urine pH 6.0, Ur Specific [place] 1.015, Urine Protein 30 H, Urine Glucose (UA) 100 H, Urine Ketones 5 H, Urine Occult Blood 150 H, Urine Nitrite Negative, Urine Bilirubin Negative, Urine Urobilinogen 4 H, Ur Leukocyte Esterase Negative, Urine RBC 10- 25 SEEN, Urine WBC 0 SEEN, Ur Squamous Epith Cells 0-5 SEEN, Amorphous Sediment 1+ URATE, Urine Bacteria 0 SEEN, Urine Mucus 0 SEEN 03/29/21 01:25: Lactic Acid 1.7 03/29/21 01:25: D-Dimer Quant (PE/DVT) 3.95 H* 03/29/21 01:25: Lactate Dehydrogenase 401 H, Total Creatine Kinase 1815 H, C- React Prot Ext Range 128.00 H 03/29/21 01:25: Procalcitonin 4.52 H 03/29/21 01:25: WBC 5.9, RBC 3.72 L, Hgb 12.0 L, Hct 36.1 L, MCV 97.0 H, MCH 32.3 H, MCHC 33.2, RDW Std Deviation 47.8 H, RDW Coeff of Garret 13.2, Plt Count 83 L, MPV 10.6, Neut % (Auto) Not Reportable, Absolute Neuts (auto) 4.6, Absolute Lymphs (auto) 0.83, Total Counted 100, Neutrophils % (Manual) 74 H, Band Neutrophils % 4, Lymphocytes % (Manual) 14 L, Monocytes % (Manual) 7, Metamyelocytes % 1, Diff Path Review November, Platelet Estimate SLT DEC, RBC Morphology NORM C+C 03/29/21 01:25: Sodium 139, Potassium 4.8, Chloride 110 H, Carbon Dioxide 22.0, Anion Gap 7, BUN 29 H, Creatinine 2.13 H, Estim Creat Clear Calc 33.32, Est GFR (MDRD) Af Amer 40 L, Est GFR (MDRD) Non-Af 33 L, BUN/Creatinine Ratio 13.6, Glucose 151 H, Calcium 8.0 L, Phosphorus 3.7, Magnesium 2.2, Total Bilirubin 0.60, AST 71 H, ALT 40, Alkaline Phosphatase 42 L, Total Protein 5.5 L, Albumin 2.4 L, Globulin 3.1, Albumin/Globulin Ratio 0.8 L Micro: Microbiology 03/28/21 19:30 Nasal Secretion SARS-CoV-2 Antigen (Rapid) - Final SARS-CoV-2 (COVID 19) Rhythm Strip Rhythm Strip: Paced Rate: 89 Radiology Impression Chest X-Ray 03/28/21 19:40 IMPRESSION: Small patchy interstitial opacities are seen in the costophrenic angle of the left lower lobe Electronically Signed: Pavan Parham MD at 21:06 EDT , Service support , Chest CTA 03/29/21 05:54 IMPRESSION: Limited study. No central or segmental pulmonary embolus. Peripheral groundglass opacities in both lungs, most pronounced in the right upper lobe. This is consistent with multilobar pneumonia and COVID should be excluded. Electronically Signed: Nabil Yepez MD at 8:22 EDT Tel , Service support ,
[2021-03-29] MEDS: Divalproex Sodium 250 MG Tablet PO ×3 (10:34→21:08)
[2021-03-29] MEDS: Loratadine 10 MG Tablet PO (10:34)
[2021-03-29] MEDS: Enoxaparin 40 MG/0.4 ML Syringe SC (10:36)
[2021-03-29] MEDS: Aspirin E.C. 81 MG Tablet PO (10:36)
[2021-03-29] MEDS: dexAMETHasone 4 MG Tablet 6 MG PO (10:36)
[2021-03-29] MEDS: Metoprolol(XL)Succ 50 MG Tablet PO (10:37)
[2021-03-29] MEDS: Levothyroxine 75 MCG Tablet PO (10:37)
[2021-03-29] MEDS: Ascorbic Acid 500 MG Tablet PO (10:37)
[2021-03-29] MEDS: Famotidine 20 MG Tablet PO (10:37)
[2021-03-29] MEDS: Insulin Lispro 100 UNIT/ML INSULN.PEN SC ×3 (10:46→21:08)
[2021-03-29 10:56] LABS: Bedside Glucose 166 mg/dL (70-110)
--- NOTE | 2021-03-29 11:06 | PN.HOSP_ITS ---
Subjective Subjective No issues overnight since being admitted. He still confused why he is here and wants been going on that brought him to the hospital but he is aware of where he is and who he is and what year it is. Objective Data Objective Data Vital Signs: Vital Signs Temp Pulse Resp BP Pulse Ox 97.5 F L 86 16 127/72 H 97 03/29/21 08:00 03/29/21 10:37 03/29/21 09:00 03/29/21 10:37 03/29/21 09:00 Oxygen Delivery Method Room Air Weight: 206 lb 12.697 oz Body Mass Index (BMI) 29.7 Intake & Output: Intake and Output for Last 24 Hours 03/28/21 03/29/21 03/30/21 03:59 03:59 03:59 Intake Total 1250 / 1250 447.5 / 447.5 Output Total 475 / 475 Balance 1250 / 1050 -27.5 / -27.5 Lab / Micro Data Result Diagrams: 03/29/21 01:25 03/29/21 01:25 Labs: Laboratory Results - last 24 hr 03/28/21 18:29: WBC 6.7, RBC 4.03 L, Hgb 13.0, Hct 38.8 L, MCV 96.3 H, MCH 32.3 H, MCHC 33.5, RDW Std Deviation 47.4 H, RDW Coeff of Garret 13.2, Plt Count 97 L, MPV 11.0, Immature Gran % (Auto) MACHINE GRINDER, Neut % (Auto) MACHINE GRINDER, Lymph % (Auto) MACHINE GRINDER, [place] % (Auto) MACHINE GRINDER, Eos % (Auto) MACHINE GRINDER, Baso % (Auto) MACHINE GRINDER, Absolute Neuts (auto) 5.2, Absolute Lymphs (auto) 0.74 L, Total Counted 100, Neutrophils % (Manual) 69, Band Neutrophils % 9 H, Lymphocytes % (Manual) 11 L, Monocytes % (Manual) 11 H, Nucleated RBC % MACHINE GRINDER, Diff Path Review November, Platelet Estimate SLT DEC, RBC Morphology N CHROM, Anisocytosis 1+ 03/28/21 18:29: PT 14.4, INR 1.2, APTT 34.0 03/28/21 18:29: Sodium 135 L, Potassium 5.3 H, Chloride 106, Carbon Dioxide 22.0, Anion Gap 7, BUN 27 H, Creatinine 2.47 H, Estim Creat Clear Calc 30.54, Est GFR (MDRD) Af Amer 33 L, Est GFR (MDRD) Non-Af 28 L, BUN/Creatinine Ratio 10.9, Glucose 215 H, Calcium 8.5, Total Bilirubin 0.60, AST 44 H, ALT 39, Alkaline Phosphatase 47, Total Protein 6.5, Albumin 2.5 L, Globulin 4.0, Albumin/Globulin Ratio 0.6 L 03/28/21 18:29: Lactic Acid 3.7 H* 03/28/21 19:30: Urine Color Yellow, Urine Clarity Sl Cldy, Urine pH 6.0, Ur Specific [place] 1.015, Urine Protein 30 H, Urine Glucose (UA) 100 H, Urine Ket ones 5 H, Urine Occult Blood 150 H, Urine Nitrite Negative, Urine Bilirubin Negative, Urine Urobilinogen 4 H, Ur Leukocyte Esterase Negative, Urine RBC 10- 25 SEEN, Urine WBC 0 SEEN, Ur Squamous Epith Cells 0-5 SEEN, Amorphous Sediment 1+ URATE, Urine Bacteria 0 SEEN, Urine Mucus 0 SEEN 03/29/21 01:25: Lactic Acid 1.7 03/29/21 01:25: D-Dimer Quant (PE/DVT) 3.95 H* 03/29/21 01:25: Lactate Dehydrogenase 401 H, Total Creatine Kinase 1815 H, C- React Prot Ext Range 128.00 H 03/29/21 01:25: Procalcitonin 4.52 H 03/29/21 01:25: WBC 5.9, RBC 3.72 L, Hgb 12.0 L, Hct 36.1 L, MCV 97.0 H, MCH 32.3 H, MCHC 33.2, RDW Std Deviation 47.8 H, RDW Coeff of Garret 13.2, Plt Count 83 L, MPV 10.6, Neut % (Auto) Not Reportable, Absolute Neuts (auto) 4.6, Absolute Lymphs (auto) 0.83, Total Counted 100, Neutrophils % (Manual) 74 H, Band Neutrophils % 4, Lymphocytes % (Manual) 14 L, Monocytes % (Manual) 7, Metamyelocytes % 1, Diff Path Review May , Platelet Estimate SLT DEC, RBC Morphology NORM C+C 03/29/21 01:25: Sodium 139, Potassium 4.8, Chloride 110 H, Carbon Dioxide 22.0, Anion Gap 7, BUN 29 H, Creatinine 2.13 H, Estim Creat Clear Calc 33.32, Est GFR (MDRD) Af Amer 40 L, Est GFR (MDRD) Non-Af 33 L, BUN/Creatinine Ratio 13.6, Glucose 151 H, Calcium 8.0 L, Phosphorus 3.7, Magnesium 2.2, Total Bilirubin 0.60, AST 71 H, ALT 40, Alkaline Phosphatase 42 L, Total Protein 5.5 L, Albumin 2.4 L, Globulin 3.1, Albumin/Globulin Ratio 0.8 L 03/29/21 10:25: POC Glucose 166 H Micro: Microbiology 03/28/21 19:30 Nasal Secretion SARS-CoV-2 Antigen (Rapid) - Final SARS-CoV-2 (COVID 19) Radiography Diagnostic Testing: Radiology Impression Chest X-Ray 03/28/21 19:40 IMPRESSION: Small patchy interstitial opacities are seen in the costophrenic angle of the left lower lobe Electronically Signed: Pavan Parham MD at 21:06 EDT , Service support , Chest CTA 03/29/21 05:54 IMPRESSION: Limited study. No central or segmental pulmonary embolus. Peripheral groundglass opacities in both lungs, most pronounced in the right upper lobe. This is consistent with multilobar pneumonia and COVID should be excluded. Electronically Signed: Nabil Yepez MD at 8:22 EDT Tel , Service support , Rhythm Strip Rhythm Strip: Paced Rate: 89 Physical Exam Const alert, oriented x3 and no apparent distress General Appearance: cooperative HEENT normocephalic Mouth: dry mucous membranes Eyes PERRL, EOMs intact bilaterally and conjunctivae normal Neck supple and no JVD Resp normal respiratory effort, no retractions and no use of accessory muscles Auscultation: wheezes; Negative for crackles, rales or rhonchi Cardio regular rate, regular rhythm, S1 normal heart sound, S2 normal heart sound and no murmurs GI soft to palpation, non-tender and non-distended; Negative for hepatosplenomegaly Extremity no clubbing, cyanosis or edema Skin no rashes or lesions noted Neuro no focal motor deficits and no sensory deficits noted Psych affect normal Appearance: appropriate Thought Process: confused Assessment & Plan Assessment/Plan (1) COVID-19: (2) Sepsis: QUALIFIERS: Acute renal failure type: unspecified Sepsis acute organ dysfunction status: with acute organ dysfunction Sepsis type: sepsis due to unspecified organism Severe sepsis acute organ dysfunction type: acute renal failure Severe sepsis shock status: without septic shock Qualified Code(s): A41.9 - Sepsis, unspecified organism; R65.20 - Severe sepsis without septic shock; N17.9 - Acute kidney failure, unspecified PLAN: 1. Sepsis secondary to COVID-19 versus bacterial process/YENNI/metabolic encephalopathy -Appreciate ICU assistance -Continue with Decadron -He does appear more alert this morning per nursing staff therefore will attempt to advance his diet -PT/OT -CTA of the chest is negative for PE -Continue with broad-spectrum antibiotics -Continue to monitor kidney function, improving, continue with gentle hydration 2. Hypertension -Continue metoprolol, blood pressures are stable 3. Schizoaffective disorder -Continue olanzapine Depakote -Patient also has sexual aggression, will continue medroxyprogesterone 4. Hypothyroidism -Continue levothyroxine DVT: Lovenox Charges/Coding Visit Charges Inpatient E&M: 25820 [facility] L2
--- NOTE | 2021-03-29 12:09 | CASEMGMT ---
Patient is from [facility]. PAUL faxed updates to [facility]. PAUL also called and spoke with Justyna. She said patient is fine to return when ready. Annalee Christensen MSW GAETANO
[2021-03-29 12:35] LABS: Pathologist Review Reviewed
[2021-03-29 12:37] LABS: Pathologist Review Reviewed
[2021-03-29 16:00] LABS: Bedside Glucose 240 mg/dL (70-110)
[2021-03-29] MEDS: Cholestyramine/Sucrose 4 GM/PACKET PO (16:01)
[2021-03-29] MEDS: OLANZapine 10 MG Tablet PO (21:09)
[2021-03-29 21:26] LABS: Bedside Glucose 193 mg/dL (70-110)
[2021-03-30] VITALS (10 sets, daily range): BP systolic 100–136; BP diastolic 63–83; PULSE 60–79; RESP 18–23; TEMP 36.6–37; O2SAT 94–100
[2021-03-30 05:51] LABS: Hematocrit 35.8 % (40-54); Hemoglobin 11.8 g/dL (13.0-16.5); Mean Platelet Vol. 10.5 fl (6.2-12.0); POSITIVE COUNT YES; POSITIVE MORPHOLOGY YES; Platelet Count 89 K/mm3 (150-450); RBC Distribution Width CV 13.4 % (11.6-14.6); RBC Distribution Width SD 49.7 fl (35.1-43.9); Red Blood Count 3.58 M/mm3 (4.6-6.2); White Blood Count 5.9 K/mm3 (4.4-11.0)
[2021-03-30 05:52] LABS: Differential Indicated MANUAL DIFF
[2021-03-30] MEDS: Divalproex Sodium 250 MG Tablet PO ×2 (06:03→14:02)
[2021-03-30] MEDS: Divalproex Sodium 250 MG Tablet 500 MG PO ×2 (06:03→14:01)
[2021-03-30] MEDS: Insulin Lispro 100 UNIT/ML INSULN.PEN SC ×2 (06:05→11:01)
[2021-03-30 06:17] LABS: Anion Gap 8 (5-15); BUN 36 mg/dL (7-18); BUN/Creat Ratio 20.3 RATIO (10-20); Chloride 111 mmol/L (98-107); Creatinine, Serum 1.77 mg/dL (0.70-1.30); EST Glomerular Filtration Rate 41 mL/min (>60); Est Glom Filt Rate - Afr Amer 49 mL/min (>60); Glucose 179 mg/dL (74-106); Potassium 4.2 mmol/L (3.5-5.1); Sodium Level 139 mmol/L (136-145)
[2021-03-30 06:27] LABS: Total Cells Counted 100 (MANUAL DIFF)
[2021-03-30 06:30] LABS: Metamyelocyte 2 % (0-1); Myelocyte 3 % (0-0); Neutrophil-Band 1 % (0-5); Neutrophil-Segmented 61 % (47-70)
[2021-03-30 06:31] LABS: Lymphocyte 26 % (19-41); Monocyte 7 % (0-10)
[2021-03-30 06:32] LABS: Absolute Lymphocyte Count 1.52 X10^3/uL (0.83-4.51); Absolute Neutrophil Count 3.6 X10^3/uL (2.0-7.7); Lymphocyte # 1.52 X10^3/ul (0.83-4.51); Neutrophil # 3.63 X10^3/uL (2.7-7.7); Platelet Estimate SLT DEC (ADEQ)
[2021-03-30 06:33] LABS: Reactive Lymphocyte 1+; Red Cell Morphology NORM C+C NORMAL (NORM C&C)
[2021-03-30 06:35] LABS: Bedside Glucose 159 mg/dL (70-110)
--- NOTE | 2021-03-30 07:26 | PN.CC_ITS ---
Assessment & Plan Assessment/Plan (1) COVID-19: (2) Sepsis: QUALIFIERS: Sepsis type: sepsis due to unspecified organism Sepsis acute organ dysfunction status: with acute organ dysfunction Severe sepsis acute organ dysfunction type: acute renal failure Acute renal failure type: unspecified Severe sepsis shock status: without septic shock Qualified Code(s): A41.9 - Sepsis, unspecified organism; R65.20 - Severe sepsis without septic shock; N17.9 - Acute kidney failure, unspecified (3) Fever: (4) Altered mental status: PLAN: RECOMMENDATIONS: 1. Consider transition to p.o. antibiotics and treat empirically for 7 days 2. Continue Decadron. No Remdesivir would be indicated 3. Increase activity as tolerated 4. Symptomatic control of fever 5. Potential discharge later today pending hemodynamic status 6. Hemodynamically stable on room air. Will sign off from a critical care perspective IMPRESSIONS: 1. Sepsis of unclear etiology Patient does have a diagnosis of COVID-19, but is on room air. Elevated CRP and pro calcitonin is concerning for possible secondary bacterial source. Pancultures have been obtained. Will initiate patient on empiric antibiotics for 48 hours until cultures can be resulted. Patient does not have significant hypoxia, so would recommend holding Remdesivir for now. Infectious disease has been consulted. 2. Metabolic encephalopathy Resolved. Unclear if metabolic encephalopathy is secondary to acute delirium given high fevers and acute infection. This does appear to be improving with supportive hemodynamics and suppression of fever. We will continue to monitor. 3. Acute kidney injury Improving. Patient's baseline creatinine appears to be approximately 1.4 from 2019. Patient was placed on IV fluids, but given COVID-19 diagnosis, would recommend using boluses instead. We will KVO IV fluids. Okay to receive boluses intermittently. No indication for renal replacement therapy 4. Schizoaffective disorder/hypothyroidism/hypertension Complicates care, management, recovery and prognosis. Patient will be at high risk for the development of delirium. Any use of atypical antipsychotics should provoke QT evaluation. Subjective Subjective Patient did okay overnight. No acute issues were reported. Patient has been hemodynamically stable on room air. No bleeding has been reported. Patient continues to report loose bowel movements, but is mentating appropriately. Objective Data Objective Data Vital Signs: Vital Signs Temp Pulse Resp BP Pulse Ox 36.6 C 79 19 H 100/63 98 03/30/21 06:26 03/30/21 06:26 03/30/21 06:26 03/30/21 06:26 03/30/21 06:26 Oxygen Delivery Method Room Air Weight: 95.9 kg Body Mass Index (BMI) 29.7 Intake & Output: Intake and Output for Last 24 Hours 03/28/21 03/29/21 03/30/21 23:59 23:59 23:59 Intake Total 1000 / 1000 907.25 / 907.25 50 / 50 Output Total 1075 / 1075 100 / 100 Balance 1000 / 1000 -167.75 / -167.75 -50 / -50 Lab / Micro Data Result Diagrams: 03/30/21 05:35 03/30/21 05:35 Labs: Laboratory Results - last 24 hr 03/28/21 18:29: Diff Path Review Reviewed 03/29/21 01:25: Diff Path Review Reviewed 03/29/21 10:25: POC Glucose 166 H 03/29/21 15:27: POC Glucose 240 H 03/29/21 20:48: POC Glucose 193 H 03/30/21 05:35: WBC 5.9, RBC 3.58 L, Hgb 11.8 L, Hct 35.8 L, MCV 100.0 H, MCH 33.0 H, MCHC 33.0, RDW Std Deviation 49.7 H, RDW Coeff of Garret 13.4, Plt Count 89 L, MPV 10.5, Neut % (Auto) Not Reportable, Absolute Neuts (auto) 3.6, Absolute Lymphs (auto) 1.52, Total Counted 100, Neutrophils % (Manual) 61, Band Neutrophils % 1, Lymphocytes % (Manual) 26, Monocytes % (Manual) 7, Metamyelocytes % 2 H, Myelocytes % 3 H, Diff Path Review May foll, Reactive Lymphocytes 1+, Platelet Estimate SLT DEC, RBC Morphology NORM C+C 03/30/21 05:35: Sodium 139, Potassium 4.2, Chloride 111 H, Carbon Dioxide 20.0 L , Anion Gap 8, BUN 36 H, Creatinine 1.77 H, Estim Creat Clear Calc 40.10, Est GFR (MDRD) Af Amer 49 L, Est GFR (MDRD) Non-Af 41 L, BUN/Creatinine Ratio 20.3 H , Glucose 179 H, Calcium 8.0 L 03/30/21 06:01: POC Glucose 159 H Micro: Microbiology 03/28/21 19:30 Nasal Secretion SARS-CoV-2 Antigen (Rapid) - Final SARS-CoV-2 (COVID 19) Radiography Diagnostic Testing: Radiology Impression Chest CTA 03/29/21 05:54 IMPRESSION: Limited study. No central or segmental pulmonary embolus. Peripheral groundglass opacities in both lungs, most pronounced in the right upper lobe. This is consistent with multilobar pneumonia and COVID should be excluded. Electronically Signed: Nabil Yepez MD at 8:22 EDT Tel , Service support , Rhythm Strip Rhythm Strip: Paced Rate: 89 Physical Exam Const alert Orientation / Consciousness: oriented to person and oriented to place Nutritional Appearance: obese HEENT normocephalic and head/scalp atraumatic; Negative for hearing grossly normal bilaterally Eyes PERRL, EOMs intact bilaterally and conjunctivae normal Neck full ROM, No nuchal rigidity and no lymphadenopathy Lymph Lymphatic: no lymphadenopathy noted Chest inspection of chest normal Chest: symmetrical chest wall rise; Negative for crepitus Resp normal respiratory effort and normal air movement Auscultation: Negative for rales, rhonchi or wheezes Cardio regular rate, regular rhythm, S1 normal heart sound, S2 normal heart sound, no murmurs, no rub and no gallops Cardio Narrative: Paced rhythm on telemetry GI normal to inspection, nondistended, normoactive bowel sounds Extremity normal to inspection, full ROM and normal capillary refill Neuro CN's II-XII intact bilaterally, moves all extremities and no sensory deficits noted Sensorium / Orientation: confused Psych Speech: normal speech Charges/Coding Visit Charges Inpatient E&M: 13047 Subs Hosp L2
--- NOTE | 2021-03-30 08:27 | CASEMGMT ---
Updates faxed to [facility], as per physician not pt may be able to return to [facility] later today. YADI Casas
--- NOTE | 2021-03-30 09:41 | PN.HOSP_ITS ---
Subjective Subjective No issues overnight, doing well. Remains on room air Objective Data Objective Data Vital Signs: Vital Signs Temp Pulse Resp BP Pulse Ox 98 F 60 19 H 100/63 98 03/30/21 06:26 03/30/21 07:00 03/30/21 06:26 03/30/21 06:26 03/30/21 06:26 Oxygen Delivery Method Room Air Weight: 211 lb 6.773 oz Body Mass Index (BMI) 29.7 Intake & Output: Intake and Output for Last 24 Hours 03/29/21 03/30/21 03/31/21 03:59 03:59 03:59 Intake Total 1250 / 1250 707.25 / 707.25 Output Total 1075 / 1075 100 / 100 Balance 1250 / 1050 -367.75 / -367.75 -100 / -100 Lab / Micro Data Result Diagrams: 03/30/21 05:35 03/30/21 05:35 Labs: Laboratory Results - last 24 hr 03/28/21 18:29: Diff Path Review Reviewed 03/29/21 01:25: Diff Path Review Reviewed 03/29/21 10:25: POC Glucose 166 H 03/29/21 15:27: POC Glucose 240 H 03/29/21 20:48: POC Glucose 193 H 03/30/21 05:35: WBC 5.9, RBC 3.58 L, Hgb 11.8 L, Hct 35.8 L, MCV 100.0 H, MCH 33.0 H, MCHC 33.0, RDW Std Deviation 49.7 H, RDW Coeff of Garret 13.4, Plt Count 89 L, MPV 10.5, Neut % (Auto) Not Reportable, Absolute Neuts (auto) 3.6, Absolute Lymphs (auto) 1.52, Total Counted 100, Neutrophils % (Manual) 61, Band Neutrophils % 1, Lymphocytes % (Manual) 26, Monocytes % (Manual) 7, Metamyelocytes % 2 H, Myelocytes % 3 H, Diff Path Review May foll, Reactive Lymphocytes 1+, Platelet Estimate SLT DEC, RBC Morphology NORM C+C 03/30/21 05:35: Sodium 139, Potassium 4.2, Chloride 111 H, Carbon Dioxide 20.0 L , Anion Gap 8, BUN 36 H, Creatinine 1.77 H, Estim Creat Clear Calc 40.10, Est GFR (MDRD) Af Amer 49 L, Est GFR (MDRD) Non-Af 41 L, BUN/Creatinine Ratio 20.3 H , Glucose 179 H, Calcium 8.0 L 03/30/21 06:01: POC Glucose 159 H Micro: Microbiology 03/28/21 19:30 Urine Catheter - Catheter Urine Culture - Preliminary Culture exhibits no growth. 03/28/21 19:30 Nasal Secretion SARS-CoV-2 Antigen (Rapid) - Final SARS-CoV-2 (COVID 19) Rhythm Strip Rhythm Strip: Paced Rate: 89 Physical Exam Const alert, oriented x3 and no apparent distress General Appearance: cooperative HEENT normocephalic Eyes PERRL, EOMs intact bilaterally and conjunctivae normal Neck supple and no JVD Resp normal respiratory effort, no retractions, no use of accessory muscles and clear to auscultation bilaterally Auscultation: Negative for crackles, rales, rhonchi or wheezes Cardio regular rate, regular rhythm, S1 normal heart sound, S2 normal heart sound and no murmurs GI soft to palpation, non-tender and non-distended; Negative for hepatosplenomegaly Extremity no clubbing, cyanosis or edema Skin no rashes or lesions noted Neuro no focal motor deficits and no sensory deficits noted Psych affect normal Appearance: appropriate Thought Process: confused Assessment & Plan Assessment/Plan (1) COVID-19: (2) Sepsis: QUALIFIERS: Sepsis type: sepsis due to unspecified organism Sepsis acute organ dysfunction status: with acute organ dysfunction Severe sepsis acute organ dysfunction type: acute renal failure Acute renal failure type: unspecified Severe sepsis shock status: without septic shock Qualified Code(s): A41.9 - Sepsis, unspecified organism; R65.20 - Severe sepsis without septic shock; N17.9 - Acute kidney failure, unspecified PLAN: 1. Sepsis secondary to COVID-19 versus bacterial process/YENNI/metabolic encephalopathy -Appreciate ICU assistance -Continue with Decadron -He does appear more alert this morning per nursing staff therefore will attempt to advance his diet -PT/OT -CTA of the chest is negative for PE -Continue with broad-spectrum antibiotics -Continue to monitor kidney function, improving, continue with gentle hydration 2. Hypertension -Continue metoprolol, blood pressures are stable 3. Schizoaffective disorder -Continue olanzapine Depakote -Patient also has sexual aggression, will continue medroxyprogesterone 4. Hypothyroidism -Continue levothyroxine DVT: Lovenox Charges/Coding Visit Charges Inpatient E&M: 95135 Subs Hosp L2
[2021-03-30] MEDS: Metoprolol(XL)Succ 50 MG Tablet PO (09:57)
[2021-03-30] MEDS: dexAMETHasone 4 MG Tablet 6 MG PO (09:57)
[2021-03-30] MEDS: Famotidine 20 MG Tablet PO (09:58)
[2021-03-30] MEDS: Aspirin E.C. 81 MG Tablet PO (09:58)
[2021-03-30] MEDS: Ascorbic Acid 500 MG Tablet PO (09:58)
[2021-03-30] MEDS: Levothyroxine 75 MCG Tablet PO (09:58)
[2021-03-30] MEDS: Loratadine 10 MG Tablet PO (09:58)
[2021-03-30] MEDS: 0.9% Saline Lock 10 ML Syringe IV (09:59)
[2021-03-30] MEDS: Enoxaparin 40 MG/0.4 ML Syringe SC (09:59)
[2021-03-30 11:16] LABS: Bedside Glucose 192 mg/dL (70-110)
--- NOTE | 2021-03-30 13:27 | NURSING ---
lavinia left with both pt's sister victor manuel and his guardian notifying them that pt will be dc'd back to [facility] today and that is doing well with no oxygen requirements.
--- NOTE | 2021-03-30 13:44 | PCM.DC ---
Discharge Instructions Diet Discharge Diet: No restrictions Activity Discharge Activity: Return to Normal Activity Dressing / Incision Call your doctor if you observe: Fever of 101 or Higher, Shortness of breath, Dizziness, Swelling in the ankles, Chest pain and Increased palpitations (irregular heartbeat) Follow Up Care Test Results: Test results from this visit will be discussed in further detail at your follow-up appointment, if applicable. Discharge Plan Admission Admit Date/Time: 03/28/21 23:20 Attending Provider: Delta Field Primary Care Provider: Josep Limon Consulting Providers: Jovanny Coppola ; Dre Reeves ; Maxwell Montejo ; Blanca Tobar NP Discharge Orders/Prescriptions Prescriptions: New dexamethasone 4 mg Tablet 6 mg PO DAILY Qty: 8 RF: 0 levofloxacin 750 mg tablet 750 mg PO DAILY Qty: 7 RF: 0 Continued medroxyprogesterone 10 mg tablet 10 mg PO DAILY RF: 0 ascorbic acid (vitamin C) 1,000 mg Tablet 1 g PO DAILY RF: 0 acetaminophen [Tylenol] 325 mg Tablet 650 mg PO Q4H PRN (Reason: PAIN AND FEVER) RF: 0 divalproex 250 mg tablet,delayed release (DR/EC) 250 mg PO TID RF: 0 cetirizine [Zyrtec] 10 mg Tablet 10 mg PO DAILY RF: 0 cimetidine 400 mg Tablet 400 mg PO BID RF: 0 medroxyprogesterone 5 mg tablet 5 mg PO DAILY RF: 0 loperamide [Imodium A-D] 2 mg Tablet 2 mg PO Q6H PRN (Reason: Loose Stool) RF: 0 olanzapine 10 mg tablet 10 mg PO QHS RF: 0 divalproex 500 mg tablet,delayed release (DR/EC) 500 mg PO TID RF: 0 levothyroxine 75 mcg tablet 75 mcg PO DAILY RF: 0 aspirin 81 mg Tablet,Chewable 81 mg PO DAILY RF: 0 zinc sulfate 220 mg Capsule 220 mg PO DAILY RF: 0 cholecalciferol (vitamin D3) 125 mcg (5,000 unit) Capsule 125 mcg PO DAILY RF: 0 cholestyramine-aspartame [Cholestyramine Light] 4 gram powder in packet 1 ea PO MOWEFR RF: 0 metoprolol succinate 50 mg Capsule,Sprinkle,Er 24hr 50 mg PO DAILY RF: 0 Referrals / Follow Up: Josep Limon MD [Primary Care Provider] - Disposition Disposition (needs filled in before D/C Order can be placed): Assisted Living
--- NOTE | 2021-03-30 13:44 | CASEMGMT ---
Addendum entered by Brittney Dumont 03/30/21 14:09: Discharge instructions are completed, SW faxed to [facility]. No further needs are anticipated. Pt to [facility] at 3pm. YADI Casas Original Note: Pt is ready to return to [facility] today. PAUL called pt's guardian, Ksenia Marin, message left. She called back, SW let her know pt is returning to [facility] this afternoon. Ksenia states understanding, in agreement. PAUL called [facility], let Mary in admissions know pt will return to [facility] today, will set up transport for 3pm. Mary states that this is fine and they are ready for him. SW set up a 3pm ambulance w[facility]. SW let pt's RN know that pt is set up to leave at 3pm. Once discharge instructions are completed, SW will fax over the discharge instructions. YADI Casas
--- NOTE | 2021-03-30 14:01 | TREXTCAR_ITS ---
Diet 03/29/21 09:04 Diet: Cardiac - Heart Healthy Food consistency:: Regular Liquid Consistency:: Regular/Thin Is pt able to select menu?: No Routine Orders/Code Status Routine Lab Work: BMP Code Status: Full Code Problem/Diagnosis (1) COVID-19: Status: Acute (2) Sepsis: Status: Acute Allergies/Procedures Done in Hospital Allergies benztropine Allergy (Verified 03/28/21 19:22) PT UNABLE TO RESPOND-NEEDS F/U Penicillins Allergy (Verified 03/28/21 19:22) PT UNABLE TO RESPOND-NEEDS F/U Procedures: None Type of Care/Length of Stay Estimated LOS: More Than 30 Days Type of Care Needed: Alf/Assisted Living Rehab Potential: Good Prognosis: Good Additional Orders/Day of Discharge Day of Discharge: 03/30/21 Dietary and Speech Recommendations Dietitian Recommendations/Changes: continue cardiac diet as tolerated; if PO at meals fails, consider changing to regular diet and/or adding 120mL ensure enlive w/ meals Discharge Plan Admission Admit Date/Time: 03/28/21 23:20 Attending Provider: Delta Field Primary Care Provider: Josep Limon Consulting Providers: Jovanny Coppola ; Dre Reeves ; Maxwell Montejo ; Blanca Tobar CHIEF TECHNOLOGY OFFICER Discharge Orders/Prescriptions Prescriptions: New dexamethasone 4 mg Tablet 6 mg PO DAILY Qty: 8 RF: 0 levofloxacin 750 mg tablet 750 mg PO DAILY Qty: 7 RF: 0 Continued medroxyprogesterone 10 mg tablet 10 mg PO DAILY RF: 0 ascorbic acid (vitamin C) 1,000 mg Tablet 1 g PO DAILY RF: 0 acetaminophen [Tylenol] 325 mg Tablet 650 mg PO Q4H PRN (Reason: PAIN AND FEVER) RF: 0 divalproex 250 mg tablet,delayed release (DR/EC) 250 mg PO TID RF: 0 cetirizine [Zyrtec] 10 mg Tablet 10 mg PO DAILY RF: 0 cimetidine 400 mg Tablet 400 mg PO BID RF: 0 medroxyprogesterone 5 mg tablet 5 mg PO DAILY RF: 0 loperamide [Imodium A-D] 2 mg Tablet 2 mg PO Q6H PRN (Reason: Loose Stool) RF: 0 olanzapine 10 mg tablet 10 mg PO QHS RF: 0 divalproex 500 mg tablet,delayed release (DR/EC) 500 mg PO TID RF: 0 levothyroxine 75 mcg tablet 75 mcg PO DAILY RF: 0 aspirin 81 mg Tablet,Chewable 81 mg PO DAILY RF: 0 zinc sulfate 220 mg Capsule 220 mg PO DAILY RF: 0 cholecalciferol (vitamin D3) 125 mcg (5,000 unit) Capsule 125 mcg PO DAILY RF: 0 cholestyramine-aspartame [Cholestyramine Light] 4 gram powder in packet 1 ea PO MOWEFR RF: 0 metoprolol succinate 50 mg Capsule,Sprinkle,Er 24hr 50 mg PO DAILY RF: 0 Referrals / Follow Up: Josep Limon MD [Primary Care Provider] - Disposition Disposition (needs filled in before D/C Order can be placed): Assisted Living
--- NOTE | 2021-03-30 15:48 | NURSING ---
1530- pt loaded up on cart and back to [facility]
--- NOTE | 2021-03-30 16:55 | DS.PCM_ITS ---
Providers Date of Admission: 03/28/21 Primary Care Physician: Dr. Josep Limon MD Consultations 03/29/21 00:35 Consult: Infectious Disease Routine Consulting Provider: Jovanny Coppola Reason for Consult: Covid-19 EMERGENT Consult: No Notified: Yes Date Notified: 03/29/21 Time Notified: 09:53 Method of Notification: Text Consult: Tableau Report Developer / Pulmonary Medicine Routine Consulting Provider: Pulmonary Medicine [facility] Reason for Consult: Covid-19 EMERGENT Consult: No Notified: Yes Date Notified: 03/28/21 Time Notified: 23:10 Method of Notification: Text Reason For Visit: COVID19 Diagnosis Discharge Diagnosis (1) COVID-19: Status: Acute Code(s): U07.1 - COVID-19 (2) Sepsis: Status: Acute Code(s): A41.9 - Sepsis, unspecified organism Qualifiers: Sepsis type: sepsis due to unspecified organism Sepsis acute organ dysfunction status: with acute organ dysfunction Severe sepsis acute organ dysfunction type: acute renal failure Acute renal failure type: unspecified Severe sepsis shock status: without septic shock Qualified Code(s): A41.9 - Sepsis, unspecified organism; R65.20 - Severe sepsis without septic shock; N17.9 - Acute kidney failure, unspecified Medications at Discharge Home Medications acetaminophen [Tylenol] 650 mg PO Q4H PRN 03/28/21 ascorbic acid (vitamin C) 1 g PO DAILY 03/28/21 aspirin 81 mg PO DAILY 03/28/21 cetirizine [Zyrtec] 10 mg PO DAILY 03/28/21 cholecalciferol (vitamin D3) 125 mcg PO DAILY 03/28/21 cholestyramine-aspartame [Cholestyramine Light] 1 ea PO MOWEFR 03/28/21 cimetidine 400 mg PO BID 03/28/21 divalproex 250 mg PO TID 03/28/21 divalproex 500 mg PO TID 03/28/21 levothyroxine 75 mcg PO DAILY 03/28/21 loperamide [Imodium A-D] 2 mg PO Q6H PRN 03/28/21 medroxyprogesterone 5 mg PO DAILY 03/28/21 medroxyprogesterone 10 mg PO DAILY 03/28/21 metoprolol succinate 50 mg PO DAILY 03/28/21 olanzapine 10 mg PO QHS 03/28/21 zinc sulfate 220 mg PO DAILY 03/28/21 dexamethasone 6 mg PO DAILY #8 tab 03/30/21 levofloxacin 750 mg PO DAILY #7 tab 03/30/21 Hospital Course Operations None Procedures None Summary of Care Provided Minutes Spent on Discharge: 42 Hospital Course: Per HPI: PASCUAL HUNTLEY, is a 70 M who [facility] where staff was concerned about patient's mental status. Per staff p brennen has not been acting right has been very lethargic and not behaving per his norm. Per [facility] report patient tested positive for Covid approximately 4 to 5 days ago. Patient is unable to answer questions at this time due to lethargy and confusion.Patient does have a legal guardian, patient full code. Hospital Course: 1. Sepsis secondary to COVID-19 versus bacterial process/YENNI/metabolic encephalopathy-encephalopathy has resolved since admission he is much more alert and tolerating a diet. He is remained on room air and it does not appear that Covid is caused significant issues for him and based on his CRP and his procalcitonin there is concern for possible bacterial process. Urine cultures and blood cultures have been negative however we will plan on discharging him on 7 days of Levaquin. Based on his renal function he will need to be every other day dosing. Discussed with him the plan [facility] and he expressed understanding of the risk and benefits and would like to return today. He did have a CT of his chest secondary to an elevated D-dimer which was negative for PE and his kidney function is continuing to improve down to 1.77 today. 2. Hypertension, schizoaffective disorder, hypothyroidism are all chronic medical conditions which complicate his care. His home medications were continued were appropriate Weight / BMI Weight Weight: 211 lb 6.773 oz Body Mass Index (BMI) 29.7 ABG / Lab / Microbiology Data Result Diagrams: 03/30/21 05:35 03/30/21 05:35 Laboratory: Laboratory Results - last 24 hr 03/29/21 20:48: POC Glucose 193 H 03/30/21 05:35: WBC 5.9, RBC 3.58 L, Hgb 11.8 L, Hct 35.8 L, MCV 100.0 H, MCH 33.0 H, MCHC 33.0, RDW Std Deviation 49.7 H, RDW Coeff of Garret 13.4, Plt Count 89 L, MPV 10.5, Neut % (Auto) Not Reportable, Absolute Neuts (auto) 3.6, Absolute Lymphs (auto) 1.52, Total Counted 100, Neutrophils % (Manual) 61, Band Neutrophils % 1, Lymphocytes % (Manual) 26, Monocytes % (Manual) 7, Metamyelocytes % 2 H, Myelocytes % 3 H, Diff Path Review May foll, Reactive Lymphocytes 1+, Platelet Estimate SLT DEC, RBC Morphology NORM C+C 03/30/21 05:35: Sodium 139, Potassium 4.2, Chloride 111 H, Carbon Dioxide 20.0 L , Anion Gap 8, BUN 36 H, Creatinine 1.77 H, Estim Creat Clear Calc 40.10, Est GFR (MDRD) Af Amer 49 L, Est GFR (MDRD) Non-Af 41 L, BUN/Creatinine Ratio 20.3 H , Glucose 179 H, Calcium 8.0 L 03/30/21 06:01: POC Glucose 159 H 03/30/21 10:59: POC Glucose 192 H Microbiology: Microbiology 03/28/21 19:30 Urine Catheter - Catheter Urine Culture - Preliminary Culture exhibits no growth. 03/28/21 19:30 Nasal Secretion SARS-CoV-2 Antigen (Rapid) - Final SARS-CoV-2 (COVID 19) D/C Instructions Discharge Diet: No restrictions Call your doctor if you observe: Fever of 101 or Higher, Shortness of breath, Dizziness, Swelling in the ankles, Chest pain and Increased palpitations (irregular heartbeat) Meaningful Use Info Meaningful Use Diagnoses (Choose all that apply): None applicable Discharge Plan Admission Admit Date/Time: 03/28/21 23:20 Attending Provider: Delta Field Primary Care Provider: Josep Limon Consulting Providers: Jovanny Coppola ; Dre Reeves ; Maxwell Montejo ; Blanca Tobar F[employer]IPPER Discharge Orders/Prescriptions Prescriptions: New dexamethasone 4 mg Tablet 6 mg PO DAILY Qty: 8 RF: 0 levofloxacin 750 mg tablet 750 mg PO DAILY Qty: 7 RF: 0 Continued medroxyprogesterone 10 mg tablet 10 mg PO DAILY RF: 0 ascorbic acid (vitamin C) 1,000 mg Tablet 1 g PO DAILY RF: 0 acetaminophen [Tylenol] 325 mg Tablet 650 mg PO Q4H PRN (Reason: PAIN AND FEVER) RF: 0 divalproex 250 mg tablet,delayed release (DR/EC) 250 mg PO TID RF: 0 cetirizine [Zyrtec] 10 mg Tablet 10 mg PO DAILY RF: 0 cimetidine 400 mg Tablet 400 mg PO BID RF: 0 medroxyprogesterone 5 mg tablet 5 mg PO DAILY RF: 0 loperamide [Imodium A-D] 2 mg Tablet 2 mg PO Q6H PRN (Reason: Loose Stool) RF: 0 olanzapine 10 mg tablet 10 mg PO QHS RF: 0 divalproex 500 mg tablet,delayed release (DR/EC) 500 mg PO TID RF: 0 levothyroxine 75 mcg tablet 75 mcg PO DAILY RF: 0 aspirin 81 mg Tablet,Chewable 81 mg PO DAILY RF: 0 zinc sulfate 220 mg Capsule 220 mg PO DAILY RF: 0 cholecalciferol (vitamin D3) 125 mcg (5,000 unit) Capsule 125 mcg PO DAILY RF: 0 cholestyramine-aspartame [Cholestyramine Light] 4 gram powder in packet 1 ea PO MOWEFR RF: 0 metoprolol succinate 50 mg Capsule,Sprinkle,Er 24hr 50 mg PO DAILY RF: 0 Referrals / Follow Up: Josep Limon MD [Primary Care Provider] - Disposition Disposition (needs filled in before D/C Order can be placed): Assisted Living Charges/Coding Visit Charges Inpatient E&M: 95126 Disch Hosp
[2021-03-31 09:04] LABS: Pathologist Review Reviewed
== END 2021-03-30 15:27 | disposition home or self-care (01) | DRG 871 ==
LOC: ED 22:40 → ICU 03-29
PROVIDERS: Internal Medicine Critical Care Medicine; Nurse Practitioner Family; Admitting Provider Hospitalist; Emergency Provider Emergency Medicine; PCP Family Medicine; Visit Provider Family Medicine
DX: A41.9 Sepsis, unspecified organism (principal); U07.1 COVID-19; G93.41 Metabolic encephalopathy; N17.9 Acute kidney failure, unspecified; R65.20 Severe sepsis without septic shock; G20 Parkinson's disease; F02.80 Dementia in other diseases classified elsewhere, unspecified severity, without behavioral disturbance, psychotic disturbance, mood disturbance, and anxiety; F25.9 Schizoaffective disorder, unspecified; E03.9 Hypothyroidism, unspecified; E66.9 Obesity, unspecified; Z68.29 Body mass index [BMI] 29.0-29.9, adult; I12.9 Hypertensive chronic kidney disease with stage 1 through stage 4 chronic kidney disease, or unspecified chronic kidney disease; N18.9 Chronic kidney disease, unspecified; I73.9 Peripheral vascular disease, unspecified; Z95.0 Presence of cardiac pacemaker; Z91.19 Patient's noncompliance with other medical treatment and regimen; E78.5 Hyperlipidemia, unspecified; Z79.82 Long term (current) use of aspirin; Z79.890 Hormone replacement therapy; Z88.0 Allergy status to penicillin; K58.9 Irritable bowel syndrome, unspecified
CPT/HCPCS: 71045; 71275; 80048; 80053; 81001; 82550; 82962; 83605; 83615; 83735; 84100; 84145; 85025; 85379; 85610; 85730; 86140; 87040; 87086; 87426; 93005; 97162; 97166; 97530; 97802; 99251; 99285; J7030; J7050; P9612; Q9967; A4216; G0463

== ENCOUNTER → 2021-06-16 08:08 | Outpatient (CLI) | payer MEDICARE, MEDICAID, SELFPAY ==
--- NOTE | 2021-06-16 08:13 | ECHOD_ITS ---
Version 2 Reason For Study: FATIGUE, WEAKNESS Procedure This was a 2D Doppler, Color Flow transthoracic echocardiogram. The study was technically difficult. Exam performed in department. Left Ventricle Normal LV size. Normal size and thickness. The estimated ejection fraction is 60 %. Unable to assess diastolic dysfunction. No regional wall motion abnormalities noted. Right Ventricle Normal RV size. There is a pacemaker lead in the right ventricle. Normal systolic function. Atria Normal left atrium. Normal right atrium. No doppler evidence for ASD. Mitral Valve There is moderate mitral annular calcification. There is no mitral valve stenosis. No mitral valve insufficiency. Tricuspid Valve There is no tricuspid stenosis. Trivial tricuspid valve insufficiency. Unable to estimate RV systolic pressure due to insufficient tricuspid regurgitant envelope. Aortic Valve Trisinus/trileaflet aortic valve. Aortic sclerosis, no stenosis. There is no aortic stenosis. No aortic valve insufficiency. Pulmonic Valve There is no pulmonic valvular stenosis. No pulmonic valve insufficiency. Great Vessels Normal aortic root. Pericardium/Pleural No pericardial effusion. Medication Definity diferred due to inability to obtain IV access. MMode/2D Measurements & Calculations LVIDd: 3.2 cm IVSd: 1.0 cm Ao root diam: 3.4 cm LVIDs: 2.4 cm LVPWd: 0.95 cm RVDd: 3.0 cm FS: 27.0 % LAV(MOD-bp): 34.9 ml LVAd ap4: 26.0 cm2 SV(MOD-sp4): 38.4 ml LAV(MOD-bp) Indexed: 16.7 ml/m2 LVLd ap4: 8.3 cm LAV(MOD-sp2): 37.0 ml EDV(MOD-sp4): 63.7 ml LAV(MOD-sp4): 33.2 ml EDV(sp4-el): 69.2 ml LVAs ap4: 14.3 cm2 LVLs ap4: 6.4 cm ESV(MOD-sp4): 25.3 ml ESV(sp4-el): 27.0 ml EF(MOD-sp4): 60.2 % EF(sp4-el): 60.9 % SV(sp4-el): 42.1 ml LA A4 area: 14.5 cm2 LA dimension(2D): 3.5 cm RA A4 area: 12.4 cm2 Time Measurements MV dec time: 0.32 sec Doppler Measurements & Calculations MV E max calderon: 72.8 cm/sec Lat Peak E' Calderon: 9.6 cm/sec Med Peak E' Calderon: 5.1 cm/sec MV A max calderon: 116.4 cm/sec E/E' lat: 7.6 E/E' med: 14.4 MV E/A: 0.63 Ao V2 max: 102.2 cm/sec LV V1 max: 94.6 cm/sec PA V2 max: 78.6 cm/sec Ao max P.2 mmHg LV V1 max P.6 mmHg TR max calderon: 217.5 cm/sec TR max P.9 mmHg ECHO/Echo Complete Interpretation Summary The estimated ejection fraction is 60 %. Unable to assess diastolic dysfunction. Ordering Physician: Josep Limon Referring Physician: Josep Limon Performed By: Yolande Diaz RDCS
== END ==
PROVIDERS: PCP Family Medicine; Referring Provider Family Medicine; Visit Provider Family Medicine
DX: I70.8 Atherosclerosis of other arteries (principal); Z95.0 Presence of cardiac pacemaker; I42.2 Other hypertrophic cardiomyopathy
CPT/HCPCS: 93306; Q9957; A4216; J3490